=== PATIENT | female | born 1975 | race Caucasian/White ===

== ENCOUNTER 2018-01-02 00:51 | Outpatient (CLI) | payer OTHER, SELFPAY ==
[2018-01-02 11:52] LABS: INR 2.9 (1.0-3.5); Prothrombin Time 27.2 sec (9.3-10.8)
--- NOTE | 2018-01-02 12:15 | DI.MAMMO_ITS ---
SYMPTOM/DIAGNOSIS: SCREENING, Z12.31 MAMMOGRAM: Mammograms were interpreted according to the usual protocol including computer analysis with CAD system, tomosynthesis and C view imaging. Comparison with prior examinations. Breast density B. No masses or microcalcifications are seen. There is nothing to suggest malignancy. IMPRESSION: Negative mammogram. Routine screening is recommended. Category I. MQSA ASSESSMENT OF FINDINGS: Negative. Category 1. Patient will receive a letter notifying them of these results. BI-RADS category B. There are scattered areas of fibroglandular density.
[2018-01-02 12:39] LABS: ALT 36 U/L (12-78); AST 19 U/L (15-37); Albumin 3.5 g/dL (3.4-5.0); Alkaline Phosphatase 100 U/L (46-116); Anion Gap 6.7 mmol/L (3-11); BUN 8 mg/dL (7-18); Bilirubin, Total 0.4 mg/dL (0.2-1.0); CO2 26.3 mmol/L (21.0-32.0); CREATININE 0.86 mg/dL (0.55-1.02); Calcium 8.3 mg/dL (8.5-10.1); Chloride 106 mmol/L (98-107); Cholesterol 169 mg/dL (50-200); Glucose 119 mg/dL (70-100); HDL Cholesterol 35 mg/dL (40-60); LDL CHOLESTEROL 114 mg/dL (<100); Potassium 4.1 mmol/L (3.5-5.1); Sodium 139 mmol/L (136-145); Total Protein 6.9 g/dL (6.4-8.2); Triglyceride 118 mg/dL (30-150)
[2018-01-02 12:43] LABS: Hemoglobin A1C 6.2 % (4.5-6.2)
== END 2018-01-02 01:11 ==
DX: Z12.31 Encounter for screening mammogram for malignant neoplasm of breast (principal); D68.51 Activated protein C resistance; Z79.01 Long term (current) use of anticoagulants; F32.9 Major depressive disorder, single episode, unspecified; E66.9 Obesity, unspecified; M25.50 Pain in unspecified joint; E78.5 Hyperlipidemia, unspecified
CPT/HCPCS: 36415; 77063; 77067; 80053; 80061; 83721; 83036; 85610

== ENCOUNTER 2018-03-12 12:28 | Outpatient (CLI) | payer OTHER, SELFPAY ==
[2018-03-12 13:33] LABS: INR 2.6 (1.0-3.5); Prothrombin Time 24.6 sec (9.3-10.8)
== END 2018-03-12 12:48 ==
PROVIDERS: Family Medicine
DX: D68.51 Activated protein C resistance (principal); Z79.01 Long term (current) use of anticoagulants
CPT/HCPCS: 36415; 85610

== ENCOUNTER 2018-05-01 11:39 | Outpatient (CLI) | payer OTHER, SELFPAY ==
[2018-05-01 12:39] LABS: INR 1.8 (0.9-1.1); Prothrombin Time 18.4 sec (9.3-11.0)
== END 2018-05-01 11:59 ==
DX: D68.51 Activated protein C resistance (principal); Z79.01 Long term (current) use of anticoagulants
CPT/HCPCS: 36415; 85610

== ENCOUNTER 2018-06-26 10:12 | Outpatient (CLI) | payer OTHER, SELFPAY ==
[2018-06-26 11:33] LABS: INR 2.2 (0.9-1.1); Prothrombin Time 22.3 sec (9.3-11.0)
== END 2018-06-26 10:32 ==
DX: D68.51 Activated protein C resistance (principal); Z79.01 Long term (current) use of anticoagulants
CPT/HCPCS: 36415; 85610

== ENCOUNTER 2018-11-12 10:41 | Outpatient (CLI) | payer OTHER, SELFPAY ==
[2018-11-12 11:31] LABS: INR 2.2 (0.9-1.1); Prothrombin Time 22.4 sec (9.3-11.0)
== END 2018-11-12 11:01 ==
DX: I82.91 Chronic embolism and thrombosis of unspecified vein (principal); Z79.01 Long term (current) use of anticoagulants; D68.51 Activated protein C resistance
CPT/HCPCS: 36415; 85610

== ENCOUNTER 2018-12-25 12:32 | Outpatient (CLI) | payer OTHER, SELFPAY ==
[2018-12-25 13:41] LABS: INR 2.8 (0.9-1.1); Prothrombin Time 28.4 sec (9.3-11.0)
== END 2018-12-25 12:52 ==
PROVIDERS: Visit Provider Family Medicine
DX: D68.51 Activated protein C resistance (principal); Z79.01 Long term (current) use of anticoagulants
CPT/HCPCS: 36415; 85610

== ENCOUNTER 2019-01-27 01:30 | Outpatient (CLI) | payer OTHER, SELFPAY ==
--- NOTE | 2019-01-27 07:42 | DI.MAMMO_ITS ---
EXAM: MG MAMMO SCREENING CLINICAL HISTORY: screening, Z12.39. TECHNIQUE: Mammograms were interpreted according to the usual protocol including computer analysis w [employer] CAD system, tomosynthesis and C-view imaging. FINDINGS: The breast tissue is heterogeneously radiodense which lowers the sensitivity of the study. There is no dominant mass. There are no suspicious calcifications and there has been no significant interval c hange when compared with prior images. IMPRESSION: No evidence of malignancy, category 1, annual screening mammography is recommended. Breast density, c ategory C. BI-RADS Cat 1 - Negative. Breast Density - Category C - Heterogeneously dense.
== END 2019-01-27 01:50 ==
PROVIDERS: PCP Family Medicine
DX: Z12.31 Encounter for screening mammogram for malignant neoplasm of breast (principal)
CPT/HCPCS: 77063; 77067

== ENCOUNTER 2019-01-29 03:15 | Outpatient (CLI) | payer OTHER, SELFPAY ==
[2019-01-29 08:45] LABS: Hemoglobin A1C 5.9 % (4.5-6.2); Prothrombin Time 44.5 sec (9.3-11.0)
[2019-01-29 09:23] LABS: ALT 22 U/L (14-59); AST 16 U/L (15-37); Albumin 3.6 g/dL (3.4-5.0); Alkaline Phosphatase 107 U/L (46-116); Anion Gap 10.6 mmol/L (3-11); BUN 9 mg/dL (7-18); Bilirubin, Total 0.6 mg/dL (0.2-1.0); CO2 27.4 mmol/L (21.0-32.0); CREATININE 0.83 mg/dL (0.55-1.02); Calcium 8.5 mg/dL (8.5-10.1); Calculated LDL 111 mg/dL; Chloride 105 mmol/L (98-107); Cholesterol 165 mg/dL (50-200); Glucose 117 mg/dL (70-100); HDL Cholesterol 38 mg/dL (40-60); Potassium 4.1 mmol/L (3.5-5.1); Sodium 143 mmol/L (136-145); Triglyceride 84 mg/dL (30-150)
[2019-01-29 09:37] LABS: INR 4.6 (0.9-1.1)
== END 2019-01-29 03:35 ==
PROVIDERS: Family Medicine; PCP Family Medicine
DX: E03.9 Hypothyroidism, unspecified (principal); E78.5 Hyperlipidemia, unspecified; F32.9 Major depressive disorder, single episode, unspecified; R73.01 Impaired fasting glucose; Z00.00 Encounter for general adult medical examination without abnormal findings; Z79.01 Long term (current) use of anticoagulants; I10 Essential (primary) hypertension; D68.51 Activated protein C resistance
CPT/HCPCS: 36415; 80053; 80061; 83036; 85610

== ENCOUNTER 2019-01-30 10:19 | Outpatient (CLI) | payer OTHER, SELFPAY ==
[2019-01-30 11:17] LABS: INR 3.6 (0.9-1.1); Prothrombin Time 35.5 sec (9.3-11.0)
[2019-02-02 07:50] LABS: INR 1.1 (0.9-1.1); Prothrombin Time 10.7 sec (9.3-11.0)
== END 2019-01-30 10:39 ==
PROVIDERS: PCP Family Medicine; Visit Provider Family Medicine
DX: D68.51 Activated protein C resistance (principal); Z79.01 Long term (current) use of anticoagulants
CPT/HCPCS: 36415; 85610

== ENCOUNTER 2019-02-02 07:04 | Outpatient (CLI) | payer OTHER, SELFPAY | END 2019-02-02 07:24 | PROVIDERS: PCP Family Medicine; Visit Provider Family Medicine | DX: I82.91 Chronic embolism and thrombosis of unspecified vein (principal); Z79.01 Long term (current) use of anticoagulants | CPT/HCPCS: 36415; 85610 ==

== ENCOUNTER 2019-02-06 13:23 | Outpatient (CLI) | payer OTHER, SELFPAY ==
[2019-02-06 14:19] LABS: INR 1.5 (0.9-1.1); Prothrombin Time 15.1 sec (9.3-11.0)
== END 2019-02-06 13:43 ==
PROVIDERS: PCP Family Medicine; Visit Provider Family Medicine
DX: D68.51 Activated protein C resistance (principal); Z79.01 Long term (current) use of anticoagulants
CPT/HCPCS: 36415; 85610

== ENCOUNTER 2019-02-13 10:11 | Outpatient (CLI) | payer OTHER, SELFPAY ==
[2019-02-13 11:49] LABS: Prothrombin Time 28.9 sec (9.3-11.0)
== END 2019-02-13 10:31 ==
PROVIDERS: PCP Family Medicine; Visit Provider Family Medicine
DX: D68.51 Activated protein C resistance (principal); Z79.01 Long term (current) use of anticoagulants
CPT/HCPCS: 36415; 85610

== ENCOUNTER 2019-02-18 13:20 | Outpatient (CLI) | payer OTHER, SELFPAY ==
[2019-02-18 14:21] LABS: INR 2.8 (0.9-1.1); Prothrombin Time 27.4 sec (9.3-11.0)
== END 2019-02-18 13:40 ==
PROVIDERS: Family Medicine; PCP Family Medicine; Visit Provider Family Medicine
DX: D68.51 Activated protein C resistance (principal); Z79.01 Long term (current) use of anticoagulants
CPT/HCPCS: 36415; 85610

== ENCOUNTER 2019-03-13 13:27 | Outpatient (CLI) | payer OTHER, SELFPAY ==
[2019-03-13 14:22] LABS: INR 3.1 (0.9-1.1); Prothrombin Time 30.3 sec (9.3-11.0)
== END 2019-03-13 13:47 ==
PROVIDERS: PCP Family Medicine; Visit Provider Family Medicine
DX: D68.51 Activated protein C resistance (principal); Z79.01 Long term (current) use of anticoagulants
CPT/HCPCS: 36415; 85610

== ENCOUNTER 2019-03-21 09:25 | Outpatient (CLI) | payer OTHER, SELFPAY ==
[2019-03-21 10:06] LABS: INR 2.6 (0.9-1.1); Prothrombin Time 25.7 sec (9.3-11.0)
== END 2019-03-21 09:45 ==
PROVIDERS: Family Medicine; PCP Family Medicine; Visit Provider Family Medicine
DX: D68.51 Activated protein C resistance (principal); Z79.01 Long term (current) use of anticoagulants
CPT/HCPCS: 36415; 85610

== ENCOUNTER 2019-05-06 12:10 | Outpatient (CLI) | payer OTHER, SELFPAY ==
[2019-05-06 13:04] LABS: INR 3.2 (0.9-1.1); Prothrombin Time 31.4 sec (9.3-11.0)
== END 2019-05-06 12:30 ==
PROVIDERS: PCP Family Medicine; Visit Provider Family Medicine
DX: D68.51 Activated protein C resistance (principal); Z79.01 Long term (current) use of anticoagulants
CPT/HCPCS: 36415; 85610

== ENCOUNTER 2019-05-12 15:22 | Outpatient (CLI) | payer OTHER, SELFPAY ==
[2019-05-12 16:00] LABS: INR 2.8 (0.9-1.1); Prothrombin Time 27.4 sec (9.3-11.0)
== END 2019-05-12 15:42 ==
PROVIDERS: PCP Family Medicine; Visit Provider Family Medicine
DX: D68.51 Activated protein C resistance (principal); Z79.01 Long term (current) use of anticoagulants
CPT/HCPCS: 36415; 85610

== ENCOUNTER 2019-08-06 01:47 | Outpatient (CLI) | payer OTHER, SELFPAY ==
[2019-08-06 15:23] LABS: INR 2.2 (0.9-1.1)
== END 2019-08-06 02:07 ==
PROVIDERS: PCP Family Medicine; Visit Provider Family Medicine
DX: D68.51 Activated protein C resistance (principal); Z79.01 Long term (current) use of anticoagulants
CPT/HCPCS: 36415; 85610

== ENCOUNTER 2019-10-09 04:18 | Outpatient (CLI) | payer OTHER, SELFPAY ==
[2019-10-09 15:13] LABS: Prothrombin Time 29.5 sec (9.3-11.0)
== END 2019-10-09 04:38 ==
PROVIDERS: PCP Family Medicine; Visit Provider Family Medicine
DX: D68.51 Activated protein C resistance (principal)
CPT/HCPCS: 36415; 85610

== ENCOUNTER 2019-10-16 01:45 | Outpatient (CLI) | payer OTHER, SELFPAY ==
[2019-10-16 09:14] LABS: INR 2.5 (0.9-1.1); Prothrombin Time 24.4 sec (9.3-11.0)
== END 2019-10-16 02:05 ==
PROVIDERS: PCP Family Medicine; Visit Provider Family Medicine
DX: D68.51 Activated protein C resistance (principal)
CPT/HCPCS: 36415; 85610

== ENCOUNTER 2019-11-04 01:16 | Outpatient (CLI) | payer OTHER, SELFPAY ==
[2019-11-04 14:31] LABS: INR 2.7 (0.9-1.1); Prothrombin Time 26.9 sec (9.3-11.0)
== END 2019-11-04 01:36 ==
PROVIDERS: Family Medicine; PCP Family Medicine; Visit Provider Family Medicine
DX: D68.51 Activated protein C resistance (principal); Z79.01 Long term (current) use of anticoagulants
CPT/HCPCS: 36415; 85610

== ENCOUNTER 2020-01-01 03:57 | Outpatient (CLI) | payer OTHER, SELFPAY ==
[2020-01-01 14:16] LABS: Prothrombin Time 33.6 sec (9.3-11.0)
[2020-01-01 14:23] LABS: INR 3.4 (0.9-1.1)
== END 2020-01-01 04:17 ==
PROVIDERS: Family Medicine; PCP Family Medicine; Visit Provider Family Medicine
DX: D68.51 Activated protein C resistance (principal); Z79.01 Long term (current) use of anticoagulants
CPT/HCPCS: 36415; 85610

== ENCOUNTER 2020-01-08 01:57 | Outpatient (CLI) | payer OTHER, SELFPAY ==
[2020-01-08 09:55] LABS: HCT 40.5 % (36.0-46.0); HGB 13.4 g/dL (11.2-15.7); MCH 28.3 pg (27.0-33.0); MCHC 33.1 % (32.0-36.0); MCV 85.6 fL (80-95); Platelet Count 314 10^3/uL (130-400); RBC 4.73 10^6/uL (3.93-5.22); RDW 14.5 % (11.7-14.6); RDW-SD 44.2 fL; WBC 8.17 10^3/uL (4.4-10.8)
[2020-01-08 09:59] LABS: Bilirubin Negative (Negative); Blood Negative (Negative); Clarity Clear (Clear); Glucose Negative (Negative); Ketones Negative (Negative); Leukocyte Esterase Negative (Negative); Nitrite Negative (Negative); Specific Gravity >= 1.030 (1.005-1.025); Urobilinogen 0.2 EU/dL (Up TO 0.2); pH 5.5 (5-8)
[2020-01-08 10:08] LABS: Hemoglobin A1C 6.2 % (<5.7)
[2020-01-08 11:13] LABS: ALT 43 U/L (14-59); AST 18 U/L (15-37); Albumin 3.7 g/dL (3.4-5.0); Alkaline Phosphatase 105 U/L (46-116); Anion Gap 7.9 mmol/L (3-11); BUN 9 mg/dL (7-18); Bilirubin, Total 0.5 mg/dL (0.2-1.0); CO2 30.1 mmol/L (21.0-32.0); CREATININE 0.83 mg/dL (0.55-1.02); Calcium 8.7 mg/dL (8.5-10.1); Chloride 103 mmol/L (98-107); Glucose 119 mg/dL (74-106); Potassium 3.7 mmol/L (3.5-5.1); Sodium 141 mmol/L (136-145)
== END 2020-01-08 02:17 ==
PROVIDERS: PCP Family Medicine; Visit Provider Family Medicine
DX: Z00.00 Encounter for general adult medical examination without abnormal findings (principal); R73.01 Impaired fasting glucose; R39.11 Hesitancy of micturition
CPT/HCPCS: 36415; 80053; 85027; 81003; 83036

== ENCOUNTER 2020-01-29 04:06 | Outpatient (CLI) | payer OTHER, SELFPAY ==
--- NOTE | 2020-01-29 07:00 | DI.MAMMO_ITS ---
EXAM: MG MAMMO SCREENING CLINICAL HISTORY: screening,Z12.31,Z80.3,FAMILY H/O BREAST CA TECHNIQUE: Mammograms were interpreted according to the usual protocol including computer analysis w [employer] system, tomosynthesis and C-view imaging. COMPARISON: FINDINGS: Breasts are heterogeneously dense. No dominant mass or clumped microcalcification is identified n[address]ha [address]. Current examination is compared previous examinations including January 2019 and there has been no gross interval change in appearance in comparison with the prior studies. IMPRESSION: No specific evidence of malignancy at this time. Routine screening examinations are suggested at yea rly intervals due to the family history of breast carcinoma. BI-RADS Category 1 - Negative Breast Density - Category C - Heterogeneously dense
== END 2020-01-29 04:26 ==
PROVIDERS: PCP Family Medicine; Visit Provider Family Medicine
DX: Z12.31 Encounter for screening mammogram for malignant neoplasm of breast (principal); Z80.3 Family history of malignant neoplasm of breast
CPT/HCPCS: 77063; 77067

== ENCOUNTER 2020-02-03 02:24 | Outpatient (CLI) | payer OTHER, SELFPAY ==
[2020-02-03 12:41] LABS: INR 4.1 (0.9-1.1)
== END 2020-02-03 02:44 ==
PROVIDERS: PCP Family Medicine; Visit Provider Family Medicine
DX: D68.51 Activated protein C resistance (principal); Z79.01 Long term (current) use of anticoagulants
CPT/HCPCS: 36415; 85610

== ENCOUNTER 2020-02-05 04:11 | Outpatient (CLI) | payer OTHER, SELFPAY ==
[2020-02-05 14:05] LABS: INR 2.4 (0.9-1.1); Prothrombin Time 23.2 sec (9.3-11.0)
== END 2020-02-05 04:31 ==
PROVIDERS: PCP Family Medicine; Visit Provider Family Medicine
DX: D68.51 Activated protein C resistance (principal); Z79.01 Long term (current) use of anticoagulants
CPT/HCPCS: 36415; 85610

== ENCOUNTER 2020-02-16 02:36 | Outpatient (CLI) | payer OTHER, SELFPAY ==
[2020-02-16 13:04] LABS: INR 3.1 (0.9-1.1); Prothrombin Time 30.7 sec (9.3-11.0)
== END 2020-02-16 02:56 ==
PROVIDERS: PCP Family Medicine; Visit Provider Family Medicine
DX: D68.51 Activated protein C resistance (principal); Z79.01 Long term (current) use of anticoagulants
CPT/HCPCS: 36415; 85610

== ENCOUNTER 2020-02-23 04:05 | Outpatient (CLI) | payer OTHER, SELFPAY ==
[2020-02-23 15:04] LABS: INR 2.4 (0.9-1.1); Prothrombin Time 23.3 sec (9.3-11.0)
== END 2020-02-23 04:25 ==
PROVIDERS: PCP Family Medicine; Visit Provider Family Medicine
DX: D68.51 Activated protein C resistance (principal); Z79.01 Long term (current) use of anticoagulants
CPT/HCPCS: 36415; 85610

== ENCOUNTER 2020-03-01 02:24 | Outpatient (CLI) | payer OTHER, SELFPAY ==
[2020-03-01 16:13] LABS: INR 3.1 (0.9-1.1)
== END 2020-03-01 02:44 ==
PROVIDERS: PCP Family Medicine; Visit Provider Family Medicine
DX: Z79.01 Long term (current) use of anticoagulants (principal); D68.51 Activated protein C resistance
CPT/HCPCS: 36415; 85610

== ENCOUNTER 2020-03-24 03:31 | Outpatient (CLI) | payer OTHER, SELFPAY ==
[2020-03-24 09:31] LABS: Prothrombin Time 41.3 sec (9.3-11.0)
[2020-03-24 09:35] LABS: INR 4.3 (0.9-1.1)
== END 2020-03-24 03:51 ==
PROVIDERS: PCP Family Medicine; Visit Provider Family Medicine
DX: D68.51 Activated protein C resistance (principal); Z79.01 Long term (current) use of anticoagulants
CPT/HCPCS: 36415; 85610

== ENCOUNTER 2020-03-26 09:55 | Outpatient (REF) | payer OTHER, SELFPAY ==
[2020-03-26 11:23] LABS: Prothrombin Time 22.9 sec (9.3-11.0)
[2020-03-26 11:27] LABS: INR 2.3 (0.9-1.1)
== END 2020-03-26 10:15 ==
LOC: NCHCN 09:55
PROVIDERS: PCP Family Medicine; Visit Provider Physician Assistant
DX: Z79.01 Long term (current) use of anticoagulants (principal)
CPT/HCPCS: 85610

== ENCOUNTER → 2020-03-29 04:37 | Outpatient (CLI) | payer OTHER, SELFPAY ==
[2020-03-29 10:45] LABS: INR 2.9 (0.9-1.1)
== END ==
PROVIDERS: PCP Family Medicine; Visit Provider Family Medicine
DX: D68.51 Activated protein C resistance (principal); Z79.01 Long term (current) use of anticoagulants
CPT/HCPCS: 36415; 85610

== ENCOUNTER → 2020-04-05 02:39 | Outpatient (CLI) | payer OTHER, SELFPAY ==
[2020-04-05 08:58] LABS: INR 3.7 (0.9-1.1); Prothrombin Time 35.6 sec (9.3-11.0)
== END ==
PROVIDERS: PCP Family Medicine; Visit Provider Family Medicine
DX: D68.51 Activated protein C resistance (principal); Z79.01 Long term (current) use of anticoagulants
CPT/HCPCS: 36415; 85610

== ENCOUNTER → 2020-04-12 02:20 | Outpatient (CLI) | payer OTHER, SELFPAY ==
[2020-04-12 09:21] LABS: INR 2.6 (0.9-1.1); Prothrombin Time 25.7 sec (9.3-11.0)
== END ==
PROVIDERS: PCP Family Medicine; Visit Provider Family Medicine
DX: D68.51 Activated protein C resistance (principal); Z79.01 Long term (current) use of anticoagulants
CPT/HCPCS: 36415; 85610

== ENCOUNTER → 2020-04-21 03:21 | Outpatient (CLI) | payer OTHER, SELFPAY ==
[2020-04-21 15:05] LABS: INR 2.6 (0.9-1.1); Prothrombin Time 25.4 sec (9.3-11.0)
== END ==
PROVIDERS: PCP Family Medicine; Visit Provider Family Medicine
DX: D68.51 Activated protein C resistance (principal); Z79.01 Long term (current) use of anticoagulants
CPT/HCPCS: 36415; 85610

== ENCOUNTER → 2020-05-04 04:46 | Outpatient (CLI) | payer OTHER, SELFPAY ==
[2020-05-04 09:08] LABS: INR 2.2 (0.9-1.1); Prothrombin Time 21.6 sec (9.3-11.0)
== END ==
PROVIDERS: PCP Family Medicine; Visit Provider Family Medicine
DX: D68.51 Activated protein C resistance (principal); Z79.01 Long term (current) use of anticoagulants
CPT/HCPCS: 36415; 85610

== ENCOUNTER → 2020-05-20 02:19 | Outpatient (CLI) | payer OTHER, SELFPAY ==
[2020-05-20 12:49] LABS: INR 3.9 (0.9-1.1); Prothrombin Time 37.6 sec (9.3-11.0)
== END ==
PROVIDERS: PCP Family Medicine; Visit Provider Family Medicine
DX: D68.51 Activated protein C resistance (principal); Z79.01 Long term (current) use of anticoagulants
CPT/HCPCS: 36415; 85610

== ENCOUNTER 2020-05-27 01:11 | Outpatient (CLI) | payer OTHER, SELFPAY ==
[2020-05-27 07:38] LABS: INR 2.6 (0.9-1.1); Prothrombin Time 25.1 sec (9.3-11.0)
== END 2020-05-27 01:12 | disposition home or self-care (01) ==
LOC: LBO 01:11
PROVIDERS: PCP Family Medicine; Visit Provider Family Medicine
DX: D68.51 Activated protein C resistance (principal); Z79.01 Long term (current) use of anticoagulants
CPT/HCPCS: 36415; 85610

== ENCOUNTER 2020-06-03 02:34 | Outpatient (CLI) | payer OTHER, SELFPAY ==
[2020-06-03 14:56] LABS: Prothrombin Time 19.8 sec (9.3-11.0)
== END 2020-06-03 02:35 | disposition home or self-care (01) ==
LOC: LBO 02:35
PROVIDERS: Family Medicine; PCP Family Medicine; Visit Provider Family Medicine
DX: D68.51 Activated protein C resistance (principal); Z79.01 Long term (current) use of anticoagulants
CPT/HCPCS: 36415; 85610

== ENCOUNTER 2020-06-10 08:35 | Outpatient (CLI) | payer OTHER, SELFPAY ==
[2020-06-10 09:10] LABS: INR 1.8 (0.9-1.1); Prothrombin Time 17.5 sec (9.3-11.0)
== END 2020-06-10 08:36 | disposition home or self-care (01) ==
PROVIDERS: PCP Family Medicine; Visit Provider Family Medicine
DX: D68.51 Activated protein C resistance (principal); Z79.01 Long term (current) use of anticoagulants
CPT/HCPCS: 36415; 85610

== ENCOUNTER 2020-06-22 04:00 | Outpatient (CLI) | payer OTHER, SELFPAY ==
[2020-06-22 12:52] LABS: INR 1.8 (0.9-1.1); Prothrombin Time 17.8 sec (9.3-11.0)
== END 2020-06-22 04:01 | disposition home or self-care (01) ==
LOC: LOS 04:01
PROVIDERS: PCP Family Medicine; Visit Provider Family Medicine
DX: D68.51 Activated protein C resistance (principal); Z79.01 Long term (current) use of anticoagulants
CPT/HCPCS: 36415; 85610

== ENCOUNTER 2020-06-29 04:00 | Outpatient (CLI) | payer OTHER, SELFPAY ==
[2020-06-29 10:05] LABS: Prothrombin Time 29.2 sec (9.3-11.0)
== END 2020-06-29 04:01 | disposition home or self-care (01) ==
LOC: LBO 04:00
PROVIDERS: PCP Family Medicine; Visit Provider Family Medicine
DX: I82.890 Acute embolism and thrombosis of other specified veins (principal); Z79.01 Long term (current) use of anticoagulants
CPT/HCPCS: 36415; 85610

== ENCOUNTER 2020-07-06 02:15 | Outpatient (CLI) | payer OTHER, SELFPAY ==
[2020-07-06 10:39] LABS: INR 3.3 (0.9-1.1); Prothrombin Time 31.8 sec (9.3-11.0)
== END 2020-07-06 02:16 | disposition home or self-care (01) ==
LOC: LBO 02:15
PROVIDERS: PCP Family Medicine; Visit Provider Family Medicine
DX: D68.51 Activated protein C resistance (principal); Z79.01 Long term (current) use of anticoagulants
CPT/HCPCS: 36415; 85610

== ENCOUNTER 2020-07-19 03:51 | Outpatient (CLI) | payer OTHER, SELFPAY ==
[2020-07-19 10:19] LABS: INR 2.2 (0.9-1.1); Prothrombin Time 21.9 sec (9.3-11.0)
== END 2020-07-19 03:52 | disposition home or self-care (01) ==
LOC: LBO 03:52
PROVIDERS: PCP Family Medicine; Visit Provider Family Medicine
DX: D68.51 Activated protein C resistance (principal); Z79.01 Long term (current) use of anticoagulants
CPT/HCPCS: 36415; 85610

== ENCOUNTER 2020-07-26 04:03 | Outpatient (CLI) | payer OTHER, SELFPAY ==
[2020-07-26 09:39] LABS: INR 2.7 (0.9-1.1); Prothrombin Time 26.8 sec (9.3-11.0)
== END 2020-07-26 04:04 | disposition home or self-care (01) ==
LOC: LBO 04:03
PROVIDERS: PCP Family Medicine; Visit Provider Family Medicine
DX: D68.51 Activated protein C resistance (principal); Z79.01 Long term (current) use of anticoagulants
CPT/HCPCS: 36415; 85610

== ENCOUNTER 2020-08-10 03:07 | Outpatient (CLI) | payer OTHER, SELFPAY ==
[2020-08-10 09:29] LABS: INR 2.3 (0.9-1.1); Prothrombin Time 22.9 sec (9.3-11.0)
== END 2020-08-10 03:08 | disposition home or self-care (01) ==
LOC: LBO 03:07
PROVIDERS: PCP Family Medicine; Visit Provider Family Medicine
DX: D68.51 Activated protein C resistance (principal); Z79.01 Long term (current) use of anticoagulants
CPT/HCPCS: 36415; 85610

== ENCOUNTER 2020-09-21 03:22 | Outpatient (CLI) | payer OTHER, SELFPAY ==
[2020-09-21 12:41] LABS: INR 2.7 (0.9-1.1); Prothrombin Time 26.5 sec (9.3-11.0)
== END 2020-09-21 03:23 | disposition home or self-care (01) ==
LOC: LBO 03:22
PROVIDERS: PCP Family Medicine; Visit Provider Family Medicine
DX: D68.51 Activated protein C resistance (principal); Z79.01 Long term (current) use of anticoagulants
CPT/HCPCS: 36415; 85610

== ENCOUNTER 2020-12-30 03:29 | Outpatient (CLI) | payer OTHER, SELFPAY ==
[2020-12-30 08:57] LABS: INR 2.4 (0.9-1.1); Prothrombin Time 23.9 sec (9.3-11.0)
== END 2020-12-30 03:30 | disposition home or self-care (01) ==
PROVIDERS: PCP Family Medicine; Visit Provider Nurse Practitioner
DX: I82.891 Chronic embolism and thrombosis of other specified veins (principal); Z79.01 Long term (current) use of anticoagulants
CPT/HCPCS: 36415; 85610

== ENCOUNTER 2021-02-09 01:48 | Outpatient (CLI) | payer OTHER, SELFPAY ==
--- NOTE | 2021-02-09 07:30 | DI.MAMMO_ITS ---
Exam(s) MAMMO SCREENING EXAM: MAMMO SCREENING CLINICAL HISTORY: screening,Z12.39. TECHNIQUE: Bilateral full field digital CC and MLO mammographic images were obtained with 3D tomosyn thesis and utilizing computer aided detection (CAD). COMPARISON: Prior mammograms dating back to 2016, the most recent being January 2020. Significant family history. Her mother was diagnosed with breast cancer in her 50s. FINDINGS: There are no new spiculated masses nor malignant appearing microcalcification groups. There is no significant architectural distortion nor skin thickening-retraction. IMPRESSION: No radiographic evidence of malignancy. BI-RADS Category 1 - Negative Breast Density - Category B - Scattered areas of fibroglandular density Breast density Category C or D implies that the patient has dense breast tissue. Dense breast tissue can make it harder to find cancer on a mammogram. Dense breast tissue is also associated with an incr eased risk of breast cancer. This information about the result of the mammogram report was provided to the patient to raise their awareness. Use this report when you speak with the patient about their risks for breast cancer, which includes their family history. At that time, you may recommend additional screening tests (Ultrasoun d or MRI) as these tests may add significant information. A negative radiographic report should not delay biopsy if a dominant or clinically suspicious mass is present. Up to ten percent of cancers are not identified on mammography. A negative report may reinforce clinical impression. Adenosis and dense breasts may obscure an underlying neoplasm. False positive reports average 6 to 10%. Patient will receive a letter notifying them of these results.
== END 2021-02-09 02:08 ==
PROVIDERS: PCP Family Medicine; Visit Provider Family Medicine
DX: Z12.31 Encounter for screening mammogram for malignant neoplasm of breast (principal)
CPT/HCPCS: 77063; 77067

== ENCOUNTER 2021-03-01 02:50 | Outpatient (CLI) | payer OTHER, SELFPAY ==
[2021-03-01 11:30] LABS: Hemoglobin A1C 6.7 % (<5.7)
[2021-03-01 11:31] LABS: Prothrombin Time 19.4 sec (9.3-11.0)
[2021-03-01 12:21] LABS: BUN 10 mg/dL (7-18); CREATININE 1.1 mg/dL (0.55-1.02); Calcium 8.7 mg/dL (8.5-10.1); Chloride 102 mmol/L (98-107); Estimated GFR 54.21 (mL/min/1.73m2); Glucose 187 mg/dL (74-106); Sodium 142 mmol/L (136-145)
[2021-03-02 10:12] LABS: Hepatitis C Ab w Rflx HCV PCR Negative (Negative)
[2021-03-02 10:55] LABS: HIV-1/2 Ag & Ab Screen Negative (Negative)
== END 2021-03-01 02:51 | disposition home or self-care (01) ==
LOC: LBO 02:50
PROVIDERS: PCP Family Medicine; Visit Provider Family Medicine
DX: Z00.00 Encounter for general adult medical examination without abnormal findings (principal); D68.51 Activated protein C resistance; I10 Essential (primary) hypertension; R73.01 Impaired fasting glucose; E66.9 Obesity, unspecified; Z11.4 Encounter for screening for human immunodeficiency virus [HIV]; Z11.59 Encounter for screening for other viral diseases
CPT/HCPCS: 36415; 80048; 86803; 87389; 83036; 85610

== ENCOUNTER 2021-05-29 04:05 | Outpatient (CLI) | payer OTHER, SELFPAY ==
[2021-05-29 12:27] LABS: Prothrombin Time 19.4 sec (9.3-11.0)
== END 2021-05-29 04:06 | disposition home or self-care (01) ==
LOC: LBO 04:05
PROVIDERS: PCP Family Medicine; Visit Provider Family Medicine
DX: D68.51 Activated protein C resistance (principal)
CPT/HCPCS: 36415; 85610

== ENCOUNTER 2021-07-05 02:38 | Outpatient (CLI) | payer OTHER, SELFPAY ==
[2021-07-05 10:34] LABS: INR 2.1 (0.9-1.1); Prothrombin Time 20.6 sec (9.3-11.0)
== END 2021-07-05 02:39 | disposition home or self-care (01) ==
PROVIDERS: PCP Family Medicine; Visit Provider Family Medicine
DX: D68.51 Activated protein C resistance (principal)
CPT/HCPCS: 36415; 85610

== ENCOUNTER 2021-08-19 16:08 | Emergency (ER) | payer OTHER, SELFPAY ==
[2021-08-19 16:11] VITALS: BP 193/122; PULSE 102; RESP 16; TEMP 36.8; O2SAT 97
--- NOTE | 2021-08-19 17:07 | W.ED.GENAD ---
Discharge Plan Disposition Patient Disposition: HOME Condition: Stable Discharge Details Clinical Impression: Abscess, dental Primary Care Provider: Ruma Turner ED Provider: Radha Bone Home Meds and New Rx's Prescriptions: New clindamycin HCl 150 mg capsule 450 mg PO TID Qty: 90 0RF Continued duloxetine 60 mg capsule,delayed release(DR/EC) 60 mg PO DAILY Qty: 90 3RF warfarin 4 mg tablet 8 mg PO DAILY Qty: 180 3RF Protocol: Dose Management Condition: Saturday Dose/Route: 8 mg Instruction: 2 x 4 mg tablets Condition: Saturday Dose/Route: 8 mg Instruction: 2 x 4 mg tablets Condition: Saturday Dose/Route: 8 mg Instruction: 2 x 4 mg tablets Condition: Saturday Dose/Route: 6 mg Instruction: 1.5 x 4 mg tablets Condition: Dose/Route: 8 mg Instruction: 2 x 4 mg tablets Condition: Saturday Dose/Route: 8 mg Instruction: 2 x 4 mg tablets Condition: Saturday Dose/Route: 8 mg Instruction: 2 x 4 mg tablets Protocol Text: Adjustment Start Date: Saturday07/05/21 INR Value: 2.1 INR Date: 07/05/21 Recheck Date: 08/04/21 Rx Instructions: Per dosing protocol established by [facility] lansoprazole [Prevacid] 15 mg capsule,delayed release(DR/EC) 15 mg PO DAILY Qty: 180 4RF Discharge Instructions Instructions: Dental Abscess (ED) Additional Instructions: Take Tylenol as needed pain Will likely require Recheck in 48 hours, it would likely take 48 hours. Antibiotics were not Gargle with warm salt water as frequently as possible during the day Follow-up with dentist on Saturday Return immediately should he develop difficulty swallowing, fever, or with any new or worsening complaints Take antibiotic as prescribed Will need a repeat INR of your Coumadin level checked within the next 4 to 5 days [phone] [facility] Referrals: Ruma Turner MD [Primary Care Provider] - Discharge Data Discharge Date/Time-TO BE ENTERED AT DEPARTURE: 08/19/21 17:27 Medical Decision Making Patient appears well, she has some mild maxillary swelling Needle aspiration performed with dental block did not exhibit any blood Tolerated procedure without incident Placed on clindamycin Referral to dentist for follow-up on Benedict Return precaution discussed and patient expressed understanding,no evidence of ludwigs angina Medical Records Medical records reviewed: Yes I reviewed the patient's medical records. Lab Data Lab results reviewed: Yes I reviewed the patient's lab results. HPI General Date/Time Provider Initiated Documentation: 08/19/21 16:32. HPI Narrative: This 45-year-old female with past medical history of factor V anticoagulated on Coumadin presents with dental pain which started today. Denies any difficulty swallowing or fever. Denies chest pain or shortness of breath. Denies any dizziness or weakness. States she has a history of dental issues. She has not been to the dentist for an extended period of time. Facial swelling started today. She Related Data Home Medications Medication Instructions Recorded Confirmed duloxetine 60 mg capsule,delayed 60 mg PO DAILY #90 cap 01/13/21 08/19/21 release lansoprazole 15 mg capsule,delayed 15 mg PO DAILY #180 tab-cap 01/13/21 08/19/21 release (Prevacid) warfarin 4 mg tablet 8 mg PO DAILY #180 tab 01/13/21 08/19/21 clindamycin HCl 150 mg capsule 450 mg PO TID #90 cap 08/19/21 Previous Rx's Medication Instructions Recorded duloxetine 60 mg capsule,delayed 60 mg PO DAILY #90 cap 01/13/21 release warfarin 4 mg tablet 8 mg PO DAILY #180 tab 01/13/21 clindamycin HCl 150 mg capsule 450 mg PO TID #90 cap 08/19/21 Allergies Allergy/AdvReac Type Severity Reaction Status Date / Time oxycodone Allergy Severe ITCHING Verified 08/19/21 16:16 bupropion HCl AdvReac Severe NUMBNESS, Verified 08/19/21 16:16 [From Wellbutrin SR] TINGLING, SHAKING citalopram AdvReac Unknown IRRITABLE Verified 08/19/21 16:16 morphine AdvReac SEVERE Verified 08/19/21 16:16 ITCHING General Stated Complaint: DentalOral ENE: 5 Review of Systems All systems reviewed & are unremarkable except as noted in HPI and below PFSH All Active Problems (Updated 08/19/21 @ 17:11 by JOSSUE Sinha) Abscess, dental (Acute) Fibromyalgia (Chronic) on duloxetine with good effect Impaired fasting glucose (Acute 09/19/09) Nonulcer dyspepsia (Acute) Chronic anticoagulation (Chronic) Factor V Leiden mutation (Acute 12/26/12) h/o DVT 1993 Tobacco use (Acute 12/03/13) smokes <1/2 pack/day; vapes now Obesity (Acute 11/07/12) Hyperlipidemia (Acute 11/07/12) Depressive disorder (Acute) Medical History (Updated 08/19/21 @ 17:11 by JOSSUE Sinha) Family history of breast cancer Surgical History (Updated 01/13/21 @ 09:48 by Ruma Turner MD) Cervical Conization/LEEP (~1996) History of intravascular stent placement in femoral vein - age 19 S/P S/P laparoscopic hysterectomy done for cramping, uterine scarring post . Tonsillectomy and adenoidectomy Family History (Updated 01/13/21 @ 09:49 by Ruma Turner MD) Mother Depression Hyperlipidemia Breast cancer Father Essential hypertension Heart disease [place] in 2019 Hyperlipidemia Sister Basal cell carcinoma Depression Asthma Brother No problems noted. Maternal Grandfather Depression Heart disease Paternal Grandfather Heart disease Maternal Grandmother Heart disease Hyperlipidemia Stroke Depression Sister Stroke Maternal Aunt Breast cancer Maternal Aunt Brain cancer Maternal Cousin Neoplasm BREAST Breast cancer Social History (Updated 01/19/21 @ 11:01 by Maureen Oconnell) Smoking/Tobacco Use Status: Current, status unknown Tobacco Type: e-cigarettes Smokeless tobacco user: other (vaping) Quit status: has quit before Second Hand Exposure: No Smoking risk assessment performed?: Yes Alcohol Intake: current Alcohol Intake frequency: holidays/special occasions only Alcohol type: beer Drug use: Occasionally Substance use type: does not use and marijuana Caregiver/Support person: No Household members: spouse and children Housing: house Number of Children: 2 Communication Needs: None Education Level: high school current occupation: HOMEMAKER Pets and animals: Yes Pets and animals: dog(s) Sexually active: Yes Do you think of yourself as: straight/heterosexual Current gender identity: female What is your relationship status?: How often do you talk on the phone with friends or family?: twice per week How often do you get together with friends or relatives?: once per week How often do you attend confucianist or denominational services?: 1-3 times per year Do you belong to any clubs or organized social groups?: no Panel score (0-1 are the most socially isolated patients): 2 What type of physical activity do you participate in: walking Duration: < 15 minutes/day Frequency: 3-4 times per week Nilam/Yarsani: None Special nilam needs: No Seatbelt use: always Helmet use: Yes Drive intox or ride w/intox equipment driver: No Do you feel safe at home: Yes Do you feel safe in your relationship?: Yes Exam Const General: cooperative, comfortable and no acute distress Orientation: alert and oriented x3 [facility] Head images: 1. swelling noted Teeth image: 1. Fracture noted, no fluctuance, no evidence of ludwigs angina no trismus Eyes Pupils: PERRL Neck Other: no stridor Resp Effort & Inspection: normal respiratory effort Auscultation: clear to auscultation bilaterally Cardio Rate: regular rate Rhythm: regular rhythm Skin General skin exam: no rashes or lesions noted Neuro General: patient alert and patient oriented x3 Course Vital Signs Vital signs: Vital Signs Temperature 36.8 C 08/19/21 16:11 Pulse 102 H 08/19/21 16:11 Respiratory Rate 16 08/19/21 16:11 Blood Pressure 193/122 H 08/19/21 16:11 Pulse Oximetry 97 08/19/21 16:11 Temperature 36.8 C 08/19/21 16:11 Temperature Source Temporal Artery Scan 08/19/21 16:11 Pulse 102 H 08/19/21 16:11 Respiratory Rate 16 08/19/21 16:11 Respiratory Effort 08/19/21 16:15 Blood Pressure 193/122 H 08/19/21 16:11 Blood Pressure Position Sitting 08/19/21 16:11 Pulse Oximetry 97 08/19/21 16:11 Oxygen Delivery Method Room Air 08/19/21 16:11 Oxygen Flow Rate 0 08/19/21 16:11 Pain Level 7 08/19/21 16:17 Procedures Nerve Block Nerve Block 1: Local Anesthetic: Bupivicaine 0.5% Nerve Blocks: other (superior inferior alveolar nerve ) Complications: none
[2021-08-19 17:15] VITALS: BP 165/104; PULSE 88; TEMP 37; O2SAT 98
[2021-08-19] MEDS: Clindamycin 150 MG CAP 450 MG PO (17:20)
[2021-08-19] MEDS: Clindamycin 150 MG CAP, 12 CAPS/BTL 450 MG PO (20:50)
--- NOTE | 2021-08-19 20:51 | NUR.NOTE ---
pt presented to the ER to say that she was unable to fill her rx . we gave her a 12 cap bottle of clindamycin Nursing Note:
== END 2021-08-19 17:27 | disposition home or self-care (01) ==
PROVIDERS: Emergency Provider Physician Assistant; PCP Family Medicine
DX: K04.7 Periapical abscess without sinus (principal)
CPT/HCPCS: 64400

== ENCOUNTER 2021-08-23 01:31 | Outpatient (CLI) | payer OTHER, SELFPAY ==
[2021-08-23 13:27] LABS: INR 1.7 (0.9-1.1); Prothrombin Time 17.1 sec (9.3-11.0)
== END 2021-08-23 01:32 | disposition home or self-care (01) ==
LOC: LBO 01:31
PROVIDERS: PCP Family Medicine; Visit Provider Family Medicine
DX: D68.51 Activated protein C resistance (principal)
CPT/HCPCS: 36415; 85610

== ENCOUNTER 2021-08-25 02:58 | Outpatient (CLI) | payer OTHER, SELFPAY ==
[2021-08-25 10:34] LABS: INR 1.3 (0.9-1.1)
== END 2021-08-25 02:59 | disposition home or self-care (01) ==
LOC: LBO 02:58
PROVIDERS: PCP Family Medicine; Visit Provider Family Medicine
DX: D68.51 Activated protein C resistance (principal)
CPT/HCPCS: 36415; 85610

== ENCOUNTER 2021-08-29 01:36 | Outpatient (CLI) | payer OTHER, SELFPAY ==
[2021-08-29 11:31] LABS: INR 1.6 (0.9-1.1); Prothrombin Time 15.6 sec (9.3-11.0)
== END 2021-08-29 01:37 | disposition home or self-care (01) ==
LOC: LBO 01:36
PROVIDERS: Nurse Practitioner; PCP Family Medicine; Visit Provider Family Medicine
DX: D68.51 Activated protein C resistance (principal)
CPT/HCPCS: 36415; 85610

== ENCOUNTER 2021-09-05 02:23 | Outpatient (CLI) | payer OTHER, SELFPAY ==
[2021-09-05 13:10] LABS: INR 2.4 (0.9-1.1); Prothrombin Time 23.8 sec (9.3-11.0)
== END 2021-09-05 02:24 | disposition home or self-care (01) ==
LOC: LBO 02:23
PROVIDERS: PCP Family Medicine; Visit Provider Family Medicine
DX: D68.51 Activated protein C resistance (principal)
CPT/HCPCS: 36415; 85610

== ENCOUNTER 2021-09-13 04:22 | Outpatient (CLI) | payer OTHER, SELFPAY ==
[2021-09-13 13:00] LABS: INR 2.9 (0.9-1.1); Prothrombin Time 28.6 sec (9.3-11.0)
== END 2021-09-13 04:23 | disposition home or self-care (01) ==
PROVIDERS: PCP Family Medicine; Visit Provider Nurse Practitioner
DX: D68.51 Activated protein C resistance (principal)
CPT/HCPCS: 36415; 85610

== ENCOUNTER 2021-09-20 03:59 | Outpatient (CLI) | payer OTHER, SELFPAY ==
[2021-09-20 11:56] LABS: INR 2.9 (0.9-1.1); Prothrombin Time 28.6 sec (9.3-11.0)
== END 2021-09-20 04:00 | disposition home or self-care (01) ==
LOC: LBO 03:59
PROVIDERS: PCP Family Medicine; Visit Provider Family Medicine
DX: D68.51 Activated protein C resistance (principal); I82.891 Chronic embolism and thrombosis of other specified veins; Z79.01 Long term (current) use of anticoagulants
CPT/HCPCS: 36415; 85610

== ENCOUNTER 2021-10-05 03:59 | Outpatient (CLI) | payer OTHER, SELFPAY ==
[2021-10-05 16:05] LABS: Prothrombin Time 25.1 sec (9.3-11.0)
[2021-10-05 16:20] LABS: INR 2.6 (0.9-1.1)
== END 2021-10-05 04:00 | disposition home or self-care (01) ==
LOC: LBO 03:59
PROVIDERS: PCP Family Medicine; Visit Provider Family Medicine
DX: I82.891 Chronic embolism and thrombosis of other specified veins (principal); Z79.01 Long term (current) use of anticoagulants
CPT/HCPCS: 36415; 85610

== ENCOUNTER 2021-10-26 04:08 | Outpatient (CLI) | payer OTHER, SELFPAY ==
[2021-10-26 15:37] LABS: INR 3.9 (0.9-1.1); Prothrombin Time 36.1 sec (9.3-11.0)
== END 2021-10-26 04:09 | disposition home or self-care (01) ==
PROVIDERS: PCP Family Medicine; Visit Provider Family Medicine
DX: D68.51 Activated protein C resistance (principal)
CPT/HCPCS: 36415; 85610

== ENCOUNTER 2021-11-02 02:38 | Outpatient (CLI) | payer OTHER, SELFPAY | END 2021-11-02 02:39 | disposition home or self-care (01) | LOC: LBO 02:40 | PROVIDERS: PCP Family Medicine; Visit Provider Family Medicine ==

== ENCOUNTER 2021-11-08 10:04 | Outpatient (CLI) | payer OTHER, SELFPAY | END 2021-11-08 10:05 | disposition home or self-care (01) | LOC: LBO 10:05 | PROVIDERS: PCP Family Medicine ==

== ENCOUNTER 2021-11-13 04:00 | Outpatient (CLI) | payer OTHER, SELFPAY ==
[2021-11-13 11:58] LABS: INR 2.1 (0.9-1.1); Prothrombin Time 20.6 sec (9.3-11.0)
== END 2021-11-13 04:01 | disposition home or self-care (01) ==
LOC: LBO 04:01
PROVIDERS: PCP Family Medicine; Visit Provider Nurse Practitioner
DX: I82.891 Chronic embolism and thrombosis of other specified veins (principal); Z79.01 Long term (current) use of anticoagulants
CPT/HCPCS: 36415; 85610

== ENCOUNTER 2021-11-20 03:55 | Outpatient (CLI) | payer OTHER, SELFPAY ==
[2021-11-20 11:41] LABS: INR 2.3 (0.9-1.1)
== END 2021-11-20 03:56 | disposition home or self-care (01) ==
PROVIDERS: PCP Family Medicine; Visit Provider Nurse Practitioner
DX: I82.891 Chronic embolism and thrombosis of other specified veins (principal); Z79.01 Long term (current) use of anticoagulants
CPT/HCPCS: 36415; 85610

== ENCOUNTER 2021-12-21 04:49 | Outpatient (CLI) | payer OTHER, SELFPAY ==
[2021-12-21 10:43] LABS: INR 2.9 (0.9-1.1); Prothrombin Time 27.2 sec (9.3-11.0)
[2021-12-21 12:31] LABS: Calculated LDL 237 mg/dL (<100); Cholesterol 325 mg/dL (<200); HDL Cholesterol 35 mg/dL (40-60); Triglyceride 267 mg/dL (<150)
[2021-12-21 18:57] LABS: Lab Add On Test DONE
[2021-12-21 19:28] LABS: TSH (W/Ref FT4) 1.02 uIU/mL (0.36-3.74)
== END 2021-12-21 04:50 | disposition home or self-care (01) ==
PROVIDERS: PCP Family Medicine; Visit Provider Family Medicine
DX: Z00.00 Encounter for general adult medical examination without abnormal findings (principal); D64.81 Anemia due to antineoplastic chemotherapy; E78.5 Hyperlipidemia, unspecified
CPT/HCPCS: 36415; 80061; 84443; 85610

== ENCOUNTER 2022-01-03 01:39 | Outpatient (CLI) | payer OTHER, SELFPAY ==
[2022-01-03 09:33] LABS: Calculated LDL 276 mg/dL (<100); Cholesterol 350 mg/dL (<200); HDL Cholesterol 38 mg/dL (40-60); Triglyceride 183 mg/dL (<150)
== END 2022-01-03 01:40 | disposition home or self-care (01) ==
LOC: LBO 01:39
PROVIDERS: PCP Family Medicine; Visit Provider Family Medicine
DX: E78.5 Hyperlipidemia, unspecified (principal); Z13.6 Encounter for screening for cardiovascular disorders
CPT/HCPCS: 36415; 80061

== ENCOUNTER 2022-01-12 01:05 | Outpatient (CLI) | payer OTHER, SELFPAY ==
[2022-01-12 13:02] LABS: INR 2.8 (0.9-1.1); Prothrombin Time 26.2 sec (9.3-11.0)
== END 2022-01-12 01:06 | disposition home or self-care (01) ==
PROVIDERS: PCP Family Medicine; Visit Provider Family Medicine
DX: D68.51 Activated protein C resistance (principal); Z79.01 Long term (current) use of anticoagulants
CPT/HCPCS: 36415; 85610; 85730

== ENCOUNTER 2022-02-02 01:44 | Outpatient (CLI) | payer OTHER, SELFPAY ==
[2022-02-02 11:13] LABS: Bilirubin Negative (Negative); Blood Negative (Negative); Clarity Clear (Clear); Glucose 500 mg/dL (Negative); Ketones Negative (Negative); Leukocyte Esterase Negative (Negative); Nitrite Negative (Negative); Specific Gravity 1.015 (1.005-1.025); Urobilinogen 0.2 EU/dL (Up TO 0.2); pH 6.5 (5-8)
[2022-02-02 11:40] LABS: Anion Gap 9.7 mmol/L (3-11); BUN 11 mg/dL (7-18); CO2 27.3 mmol/L (21.0-32.0); CREATININE 1.2 mg/dL (0.55-1.02); Chloride 94 mmol/L (98-107); Estimated GFR 57.24 (mL/min/1.73m2); Potassium 3.5 mmol/L (3.5-5.1); Sodium 131 mmol/L (136-145)
== END 2022-02-02 01:45 | disposition home or self-care (01) ==
PROVIDERS: PCP Family Medicine; Visit Provider Family Medicine
DX: I10 Essential (primary) hypertension (principal); R30.0 Dysuria; Z79.01 Long term (current) use of anticoagulants; R73.01 Impaired fasting glucose
CPT/HCPCS: 36415; 80048; 81003; 83036; 85610

== ENCOUNTER → 2022-02-12 01:53 | Outpatient (CLI) | payer OTHER, SELFPAY ==
--- NOTE | 2022-02-12 07:30 | DI.MAMMO_ITS ---
Exam(s) MAMMO SCREENING EXAM: MAMMO SCREENING CLINICAL HISTORY: screening,z12.39 TECHNIQUE: Mammograms were interpreted according to the usual protocol including computer analysis w [employer] CAD system, tomosynthesis and C-view imaging. COMPARISON: 2016 through 2020 FINDINGS: The breasts are composed of scattered fibroglandular densities, Breast Density category B. No suspicious masses or suspicious microcalcifications are seen. No skin thickening or abnormal axillary lymph nodes are seen. There has been no significant change from prior exams. IMPRESSION: BI-RADS Category 1, Negative mammogram Yearly screening mammography is recommended. Breast Density - Category B, scattered fibroglandular densities. A negative radiographic report should not delay biopsy if a dominant or clinically suspicious mass is present. Up to ten percent of cancers are not identified on mammography. A negative report may reinforce clinical impression. Adenosis and dense breasts may obscure an underlying neoplasm. False positive reports average 6 to 10%. Patient will receive a letter notifying them of these results.
== END ==
PROVIDERS: PCP Family Medicine; Visit Provider Family Medicine
DX: Z12.31 Encounter for screening mammogram for malignant neoplasm of breast (principal)
CPT/HCPCS: 77063; 77067

== ENCOUNTER 2022-02-12 12:55 | Outpatient (CLI) | payer OTHER, SELFPAY ==
[2022-02-12 15:53] LABS: Prothrombin Time 36.8 sec (9.3-11.0)
== END 2022-02-12 12:56 | disposition home or self-care (01) ==
LOC: LBO 12:56
PROVIDERS: PCP Family Medicine; Visit Provider Family Medicine
DX: I82.891 Chronic embolism and thrombosis of other specified veins; Z79.01 Long term (current) use of anticoagulants
CPT/HCPCS: 36415; 85610

== ENCOUNTER 2022-02-21 03:24 | Outpatient (CLI) | payer OTHER, SELFPAY ==
[2022-02-21 11:23] LABS: INR 2.5 (0.9-1.1); Prothrombin Time 24.1 sec (9.3-11.0)
== END 2022-02-21 03:25 | disposition home or self-care (01) ==
PROVIDERS: PCP Family Medicine; Visit Provider Family Medicine
DX: Z79.01 Long term (current) use of anticoagulants (principal); I82.891 Chronic embolism and thrombosis of other specified veins
CPT/HCPCS: 36415; 85610

== ENCOUNTER 2022-02-27 04:00 | Outpatient (CLI) | payer OTHER, SELFPAY ==
--- NOTE | 2022-02-27 13:00 | NS.NUTBLAN_ITS ---
Viniat was referred for diabetes self management education. Newly dx with Dm2 in December PMH: chronic anticoagulation, HLD, HTN, DM2, Obesity, Fibromyalgia 5'6 224 lbs BMI: 36.6 Labs: 2020: A1C: 6.7% 2021: A1C: 11.3%, chol: 350, LDL: 276, HDL: 38, Tri Meds: ozempic, 1000 mg metformin BID, glimipiride 2 mg, statin Blood Sugar Log this week: fastin, post meal: 137, fastin, post meal: 181 Food Record: skips breakfast and lunch often, supper: 2 PB and Fluff sandwiches on ww [place]a had all her teeth removed 8 weeks ago and can only tolerate soft foods such as applesauce, ravioli, soft breads, eggs, ice cream. Her blood sugars have been well controlled on above regime despite reliance on high carb, soft foods. Reviewed with [place] optimal diet to control her diabetes and brainstormed meal ideas. Provided written material. Encouraged 3 meals daily and having protein shakes if unable to sit down for meal. Also encouraged daily exercise- walking outside or using exercise bike at home. Suspect A1C much improved, to have another blood draw next week. [place] instructed to follow up with caption writer if A1C >7.5%.
== END 2022-02-27 04:01 | disposition home or self-care (01) ==
LOC: DS 04:00
PROVIDERS: PCP Family Medicine; Visit Provider Dietitian, Registered
DX: E11.9 Type 2 diabetes mellitus without complications (principal)
CPT/HCPCS: 97802

== ENCOUNTER 2022-03-07 02:54 | Outpatient (CLI) | payer OTHER, SELFPAY ==
[2022-03-07 11:31] LABS: Prothrombin Time 38.8 sec (9.3-11.0)
[2022-03-07 11:39] LABS: INR 4.2 (0.9-1.1)
== END 2022-03-07 02:55 | disposition home or self-care (01) ==
LOC: LBO 02:54
PROVIDERS: PCP Family Medicine; Visit Provider Family Medicine
DX: I82.890 Acute embolism and thrombosis of other specified veins (principal); Z79.01 Long term (current) use of anticoagulants
CPT/HCPCS: 36415; 85610

== ENCOUNTER 2022-03-14 02:41 | Outpatient (CLI) | payer OTHER, SELFPAY ==
[2022-03-14 14:42] LABS: Prothrombin Time 28.4 sec (9.3-11.0)
== END 2022-03-14 02:42 | disposition home or self-care (01) ==
PROVIDERS: PCP Family Medicine; Visit Provider Family Medicine
DX: I82.891 Chronic embolism and thrombosis of other specified veins (principal); Z79.01 Long term (current) use of anticoagulants
CPT/HCPCS: 36415; 85610

== ENCOUNTER 2022-03-21 03:42 | Outpatient (CLI) | payer OTHER, SELFPAY ==
[2022-03-21 11:48] LABS: INR 2.8 (0.9-1.1)
== END 2022-03-21 03:43 | disposition home or self-care (01) ==
LOC: LBO 03:42
PROVIDERS: PCP Family Medicine; Visit Provider Family Medicine
DX: I82.891 Chronic embolism and thrombosis of other specified veins (principal); Z79.01 Long term (current) use of anticoagulants
CPT/HCPCS: 36415; 85610

== ENCOUNTER 2022-04-04 03:07 | Outpatient (CLI) | payer OTHER, SELFPAY ==
[2022-04-04 11:12] LABS: INR 2.8 (0.9-1.1); Prothrombin Time 26.5 sec (9.3-11.0)
[2022-04-04 11:49] LABS: Calculated LDL 87 mg/dL (<100); Cholesterol 149 mg/dL (<200); HDL Cholesterol 43 mg/dL (40-60); Triglyceride 99 mg/dL (<150)
== END 2022-04-04 03:08 | disposition home or self-care (01) ==
PROVIDERS: PCP Family Medicine; Visit Provider Family Medicine
DX: E78.00 Pure hypercholesterolemia, unspecified (principal); I82.891 Chronic embolism and thrombosis of other specified veins; Z79.01 Long term (current) use of anticoagulants
CPT/HCPCS: 36415; 80061; 85610

== ENCOUNTER 2022-05-04 01:18 | Outpatient (CLI) | payer OTHER, SELFPAY ==
[2022-05-04 10:26] LABS: INR 2.1 (0.9-1.1); Prothrombin Time 20.1 sec (9.3-11.0)
== END 2022-05-04 01:19 | disposition home or self-care (01) ==
PROVIDERS: PCP Family Medicine; Visit Provider Family Medicine
DX: Z79.01 Long term (current) use of anticoagulants (principal); I82.891 Chronic embolism and thrombosis of other specified veins
CPT/HCPCS: 36415; 85610

== ENCOUNTER 2022-06-05 02:04 | Outpatient (CLI) | payer OTHER, SELFPAY ==
[2022-06-05 10:39] LABS: INR 1.5 (0.9-1.1); Prothrombin Time 15.1 sec (9.3-11.0)
== END 2022-06-05 02:05 | disposition home or self-care (01) ==
PROVIDERS: PCP Family Medicine; Visit Provider Family Medicine
DX: D68.51 Activated protein C resistance (principal); Z79.01 Long term (current) use of anticoagulants; Z86.718 Personal history of other venous thrombosis and embolism
CPT/HCPCS: 36415; 85610

== ENCOUNTER 2022-06-19 02:19 | Outpatient (CLI) | payer OTHER, SELFPAY ==
[2022-06-19 11:08] LABS: INR 2.3 (0.9-1.1); Prothrombin Time 23.6 sec (9.3-11.0)
== END 2022-06-19 02:20 | disposition home or self-care (01) ==
PROVIDERS: PCP Family Medicine; Visit Provider Family Medicine
DX: Z79.01 Long term (current) use of anticoagulants (principal); I82.891 Chronic embolism and thrombosis of other specified veins
CPT/HCPCS: 36415; 85610

== ENCOUNTER 2022-07-03 07:48 | Outpatient (CLI) | payer OTHER, SELFPAY ==
[2022-07-03 09:06] LABS: INR 2.5 (0.9-1.1); Prothrombin Time 25.7 sec (9.3-11.0)
[2022-07-03 09:32] LABS: COMMENT (LAB VIEW ONLY) 77.71 mg/dL; Microalb ug/mg Crea 9.4 ug/mg Cr
[2022-07-03 09:38] LABS: ALT 74 U/L (14-59); AST 35 U/L (15-37); Albumin 3.8 g/dL (3.4-5.0); Alkaline Phosphatase 116 U/L (46-116); Anion Gap 12.7 mmol/L (3-11); BUN 7 mg/dL (7-18); Bilirubin, Total 0.5 mg/dL (0.2-1.0); CO2 28.3 mmol/L (21.0-32.0); CREATININE 0.8 mg/dL (0.55-1.02); Chloride 102 mmol/L (98-107); Estimated GFR 93.12 (mL/min/1.73m2); Glucose 194 mg/dL (74-106); Potassium 3.4 mmol/L (3.5-5.1); Sodium 143 mmol/L (136-145); Total Protein 7.5 g/dL (6.4-8.2)
== END 2022-07-03 07:49 | disposition home or self-care (01) ==
LOC: LBO 07:49
PROVIDERS: PCP Family Medicine; Visit Provider Family Medicine
DX: Z00.00 Encounter for general adult medical examination without abnormal findings (principal); E11.65 Type 2 diabetes mellitus with hyperglycemia; D68.51 Activated protein C resistance; Z79.01 Long term (current) use of anticoagulants
CPT/HCPCS: 36415; 80053; 82043; 82570; 85610

== ENCOUNTER 2022-08-03 01:32 | Outpatient (CLI) | payer OTHER, SELFPAY ==
[2022-08-03 10:07] LABS: Prothrombin Time 19.8 sec (9.3-11.0)
[2022-08-03 10:31] LABS: ALT 97 U/L (14-59); AST 52 U/L (15-37); Alkaline Phosphatase 100 U/L (46-116); Anion Gap 9.5 mmol/L (3-11); BUN 8 mg/dL (7-18); Bilirubin, Total 0.7 mg/dL (0.2-1.0); CO2 28.5 mmol/L (21.0-32.0); CREATININE 0.9 mg/dL (0.55-1.02); Calcium 8.9 mg/dL (8.5-10.1); Chloride 102 mmol/L (98-107); Estimated GFR 80.84 (mL/min/1.73m2); Glucose 196 mg/dL (74-106); Potassium 3.6 mmol/L (3.5-5.1); Sodium 140 mmol/L (136-145); Total Protein 7.8 g/dL (6.4-8.2)
== END 2022-08-03 01:33 | disposition home or self-care (01) ==
PROVIDERS: PCP Family Medicine; Visit Provider Family Medicine
DX: I10 Essential (primary) hypertension (principal); E78.5 Hyperlipidemia, unspecified; E11.9 Type 2 diabetes mellitus without complications; D68.51 Activated protein C resistance; R79.89 Other specified abnormal findings of blood chemistry; Z79.01 Long term (current) use of anticoagulants
CPT/HCPCS: 36415; 80053; 85610

== ENCOUNTER 2022-08-10 08:39 | Outpatient (CLI) | payer OTHER, SELFPAY ==
[2022-08-10 13:00] LABS: Hemoglobin A1C 6.7 % (<5.7)
[2022-08-13 14:03] LABS: HBs Antibody, Qual Negative (See Note); HBs Antibody, Quant <3.1 mIU/mL (See Note); Hepatitis B Core Antibody Negative (Negative); Hepatitis B surface Ag Negative (Negative); Hepatitis C Ab w Rflx HCV PCR Negative (Negative)
== END 2022-08-10 08:40 | disposition home or self-care (01) ==
LOC: LOS 08:39
PROVIDERS: PCP Family Medicine; Referring Provider Family Medicine; Visit Provider Family Medicine
DX: E11.9 Type 2 diabetes mellitus without complications (principal); R74.01 Elevation of levels of liver transaminase levels
CPT/HCPCS: 36415; 86704; 86706; 86803; 87340; 83036

== ENCOUNTER 2022-08-31 01:30 | Outpatient (CLI) | payer OTHER, SELFPAY ==
[2022-08-31 09:35] LABS: ALT 81 U/L (14-59); AST 38 U/L (15-37); Albumin 3.9 g/dL (3.4-5.0); Alkaline Phosphatase 103 U/L (46-116); Anion Gap 6.9 mmol/L (3-11); BUN 14 mg/dL (7-18); Bilirubin, Total 0.5 mg/dL (0.2-1.0); CO2 31.1 mmol/L (21.0-32.0); CREATININE 0.9 mg/dL (0.55-1.02); Calcium 9.1 mg/dL (8.5-10.1); Chloride 101 mmol/L (98-107); Estimated GFR 80.84 (mL/min/1.73m2); Glucose 165 mg/dL (74-106); Potassium 3.7 mmol/L (3.5-5.1); Sodium 139 mmol/L (136-145); Total Protein 7.9 g/dL (6.4-8.2)
[2022-08-31 10:09] LABS: INR 1.8 (0.9-1.1); Prothrombin Time 17.8 sec (9.3-11.0)
== END 2022-08-31 01:31 | disposition home or self-care (01) ==
PROVIDERS: PCP Family Medicine; Visit Provider Family Medicine
DX: R74.01 Elevation of levels of liver transaminase levels (principal); E11.9 Type 2 diabetes mellitus without complications; I10 Essential (primary) hypertension; I82.890 Acute embolism and thrombosis of other specified veins; Z79.01 Long term (current) use of anticoagulants
CPT/HCPCS: 36415; 80053; 85610

== ENCOUNTER 2022-09-07 03:01 | Outpatient (CLI) | payer OTHER, SELFPAY ==
[2022-09-07 09:21] LABS: Abs Immature Grans 0.02 10^3/uL (0.0-0.06); Absolute Basophil Count 0.03 10^3/uL (0.0-0.2); Absolute Eosinophil Count 0.22 10^3/uL (0.0-0.7); Absolute Lymphocyte Count 2.01 10^3/uL (1.2-3.4); Absolute Monocyte Count 0.34 10^3/uL (0.1-0.8); Absolute Neutrophil Count 4.27 10^3/uL (1.2-6.7); Basophils % 0.4; Eosinophils % 3.2; HCT 44.6 % (36.0-46.0); HGB 14.6 g/dL (11.2-15.7); Immature Grans % 0.3; Lymphocytes % 29.2; MCH 27.3 pg (27.0-33.0); MCHC 32.7 % (32.0-36.0); MCV 84 fL (80-95); MPV 9.4 fL (8.0-11.0); Monocytes % 4.9; Platelet Count 362 10^3/uL (130-400); RBC 5.34 10^6/uL (3.93-5.22); RDW 15.3 % (11.7-14.6); RDW-SD 46.5 fL; WBC 6.89 10^3/uL (4.4-10.8)
[2022-09-07 09:28] LABS: INR 1.8 (0.9-1.1); Prothrombin Time 18.1 sec (9.3-11.0)
== END 2022-09-07 03:02 | disposition home or self-care (01) ==
PROVIDERS: PCP Family Medicine; Visit Provider Family Medicine
DX: E11.65 Type 2 diabetes mellitus with hyperglycemia (principal); I10 Essential (primary) hypertension; E78.5 Hyperlipidemia, unspecified; R74.01 Elevation of levels of liver transaminase levels; D68.51 Activated protein C resistance; Z79.01 Long term (current) use of anticoagulants
CPT/HCPCS: 36415; 85025; 85610

== ENCOUNTER 2022-09-19 04:30 | Outpatient (CLI) | payer OTHER, SELFPAY ==
[2022-09-19 12:38] LABS: INR 2.5 (0.9-1.1); Prothrombin Time 25.2 sec (9.3-11.0)
== END 2022-09-19 04:31 | disposition home or self-care (01) ==
LOC: LBO 04:31
PROVIDERS: PCP Family Medicine; Visit Provider Family Medicine
DX: R74.01 Elevation of levels of liver transaminase levels (principal); D68.51 Activated protein C resistance; Z79.01 Long term (current) use of anticoagulants
CPT/HCPCS: 36415; 85610

== ENCOUNTER 2022-09-26 04:34 | Outpatient (CLI) | payer OTHER, SELFPAY ==
[2022-09-26 12:06] LABS: INR 2.5 (0.9-1.1); Prothrombin Time 25.4 sec (9.3-11.0)
== END 2022-09-26 04:35 | disposition home or self-care (01) ==
PROVIDERS: PCP Family Medicine; Visit Provider Family Medicine
DX: R74.01 Elevation of levels of liver transaminase levels (principal); Z79.01 Long term (current) use of anticoagulants; R79.1 Abnormal coagulation profile; D68.51 Activated protein C resistance
CPT/HCPCS: 36415; 85610

== ENCOUNTER 2022-10-03 03:27 | Outpatient (CLI) | payer OTHER, SELFPAY ==
[2022-10-03 10:22] LABS: INR 2.6 (0.9-1.1); Prothrombin Time 26.4 sec (9.3-11.0)
== END 2022-10-03 03:28 | disposition home or self-care (01) ==
LOC: LBO 03:27
PROVIDERS: PCP Family Medicine; Visit Provider Family Medicine
DX: I82.891 Chronic embolism and thrombosis of other specified veins (principal); R79.1 Abnormal coagulation profile; Z79.01 Long term (current) use of anticoagulants
CPT/HCPCS: 36415; 85610

== ENCOUNTER 2022-10-19 13:31 | Outpatient (CLI) | payer OTHER, SELFPAY ==
--- NOTE | 2022-10-19 13:30 | RT.EKG_ITS ---
APPROVED REPORT Exam: Resting ECG Reason for Exam: tachycardia Patient Location: O HR:106 bpm ECG Measurements Heart Rate 106 AXIS VA 171 P 7 QRSd 71 QRS -10 QT 328 T 38 QTc 436 Conclusion Sinus tachycardia...rate> 99 Low voltage, precordial leads...precordial leads <1.0mV Otherwise normal ECG
== END 2022-10-19 13:32 | disposition home or self-care (01) ==
LOC: DI.CM 13:32
PROVIDERS: PCP Family Medicine; Visit Provider Family Medicine
DX: R00.0 Tachycardia, unspecified (principal); I10 Essential (primary) hypertension
CPT/HCPCS: 93010

== ENCOUNTER 2022-10-25 09:23 | Outpatient (RCR) | payer OTHER, SELFPAY ==
--- NOTE | 2022-10-25 09:30 | HOLTER_ITS ---
APPROVED REPORT Conclusion This is a 48-hour Holter monitor Rhythm throughout was sinus with an average heart rate of 87. Minimum was 68, maximum 125 A total of 4 atrial and 4 ventricular ectopic beats were seen There was no atrial fibrillation, no SVT, no high-grade AV block, no pauses greater than 3 seconds Multiple patient symptoms were reported which could not be reliably correlated with any dysrhythmia
== END 2022-11-19 23:59 | disposition home or self-care (01) ==
LOC: CARDOPNVT 09:23
PROVIDERS: PCP Family Medicine; Visit Provider Family Medicine
DX: R00.0 Tachycardia, unspecified (principal)
CPT/HCPCS: 93225; 93226

== ENCOUNTER 2022-11-01 03:00 | Outpatient (CLI) | payer OTHER, SELFPAY ==
[2022-11-01 11:08] LABS: Prothrombin Time 51.8 sec (9.3-11.0)
[2022-11-01 11:14] LABS: INR 5.2 (0.9-1.1)
== END 2022-11-01 03:01 | disposition home or self-care (01) ==
PROVIDERS: PCP Family Medicine; Visit Provider Family Medicine
DX: I82.890 Acute embolism and thrombosis of other specified veins (principal); Z79.01 Long term (current) use of anticoagulants
CPT/HCPCS: 36415; 85610

== ENCOUNTER 2022-11-03 16:19 | Outpatient (CLI) | payer OTHER, SELFPAY ==
[2022-11-03 11:36] LABS: INR 3.2 (0.9-1.1)
== END 2022-11-03 16:20 | disposition home or self-care (01) ==
LOC: LBO 16:20
PROVIDERS: PCP Family Medicine; Visit Provider Family Medicine
DX: I82.890 Acute embolism and thrombosis of other specified veins (principal); Z79.01 Long term (current) use of anticoagulants
CPT/HCPCS: 85610

== ENCOUNTER 2022-11-09 01:51 | Outpatient (CLI) | payer OTHER, SELFPAY ==
[2022-11-09 10:16] LABS: INR 3.9 (0.9-1.1)
== END 2022-11-09 01:52 | disposition home or self-care (01) ==
PROVIDERS: PCP Family Medicine; Visit Provider Family Medicine
DX: I82.891 Chronic embolism and thrombosis of other specified veins (principal); Z79.01 Long term (current) use of anticoagulants; R74.01 Elevation of levels of liver transaminase levels; R79.1 Abnormal coagulation profile
CPT/HCPCS: 36415; 85610

== ENCOUNTER 2022-11-16 01:45 | Outpatient (CLI) | payer OTHER, SELFPAY ==
[2022-11-16 10:07] LABS: Prothrombin Time 41.6 sec (9.3-11.0)
[2022-11-16 10:17] LABS: INR 4.1 (0.9-1.1)
== END 2022-11-16 01:46 | disposition home or self-care (01) ==
PROVIDERS: PCP Family Medicine; Visit Provider Family Medicine
DX: I82.891 Chronic embolism and thrombosis of other specified veins; Z79.01 Long term (current) use of anticoagulants; R74.01 Elevation of levels of liver transaminase levels
CPT/HCPCS: 36415; 85610

== ENCOUNTER 2022-11-23 02:17 | Outpatient (CLI) | payer OTHER, SELFPAY ==
[2022-11-23 11:46] LABS: INR 3.3 (0.9-1.1); Prothrombin Time 32.8 sec (9.3-11.0)
== END 2022-11-23 02:18 | disposition home or self-care (01) ==
PROVIDERS: PCP Family Medicine; Visit Provider Family Medicine
DX: I82.891 Chronic embolism and thrombosis of other specified veins (principal); Z79.01 Long term (current) use of anticoagulants; R74.01 Elevation of levels of liver transaminase levels
CPT/HCPCS: 36415; 85610

== ENCOUNTER 2022-11-30 02:25 | Outpatient (CLI) | payer OTHER, SELFPAY ==
[2022-11-30 10:20] LABS: INR 2.8 (0.9-1.1); Prothrombin Time 28.5 sec (9.3-11.0)
[2022-11-30 10:25] LABS: Hemoglobin A1C 5.7 % (<5.7)
== END 2022-11-30 02:26 | disposition home or self-care (01) ==
PROVIDERS: PCP Family Medicine; Visit Provider Family Medicine
DX: I82.891 Chronic embolism and thrombosis of other specified veins (principal); Z79.01 Long term (current) use of anticoagulants; E11.65 Type 2 diabetes mellitus with hyperglycemia; D68.51 Activated protein C resistance
CPT/HCPCS: 36415; 83036; 85610

== ENCOUNTER 2022-12-07 02:34 | Outpatient (CLI) | payer OTHER, SELFPAY ==
[2022-12-07 10:19] LABS: INR 2.9 (0.9-1.1); Prothrombin Time 29.4 sec (9.3-11.0)
== END 2022-12-07 02:35 | disposition home or self-care (01) ==
PROVIDERS: PCP Family Medicine; Visit Provider Family Medicine
DX: D68.51 Activated protein C resistance (principal); Z79.01 Long term (current) use of anticoagulants
CPT/HCPCS: 36415; 85610

== ENCOUNTER 2022-12-14 01:33 | Outpatient (CLI) | payer OTHER, SELFPAY ==
[2022-12-14 08:15] LABS: INR 3.2 (0.9-1.1); Prothrombin Time 32.1 sec (9.3-11.0)
== END 2022-12-14 01:34 | disposition home or self-care (01) ==
LOC: LBO 01:33
PROVIDERS: PCP Family Medicine; Visit Provider Family Medicine
DX: R74.01 Elevation of levels of liver transaminase levels (principal); Z79.01 Long term (current) use of anticoagulants; D68.51 Activated protein C resistance
CPT/HCPCS: 36415; 85610

== ENCOUNTER 2022-12-21 02:52 | Outpatient (CLI) | payer OTHER, SELFPAY ==
[2022-12-21 12:00] LABS: INR 2.4 (0.9-1.1); Prothrombin Time 24.4 sec (9.3-11.0)
== END 2022-12-21 02:53 | disposition home or self-care (01) ==
PROVIDERS: PCP Family Medicine; Visit Provider Family Medicine
DX: D68.51 Activated protein C resistance (principal); Z79.01 Long term (current) use of anticoagulants
CPT/HCPCS: 36415; 85610

== ENCOUNTER 2022-12-28 01:59 | Outpatient (CLI) | payer OTHER, SELFPAY ==
[2022-12-28 12:44] LABS: INR 2.8 (0.9-1.1); Prothrombin Time 28.2 sec (9.3-11.0)
== END 2022-12-28 02:00 | disposition home or self-care (01) ==
PROVIDERS: PCP Family Medicine; Visit Provider Family Medicine
DX: D68.51 Activated protein C resistance (principal); Z79.01 Long term (current) use of anticoagulants; R74.01 Elevation of levels of liver transaminase levels
CPT/HCPCS: 36415; 85610

== ENCOUNTER 2023-01-11 01:57 | Outpatient (CLI) | payer OTHER, SELFPAY ==
[2023-01-11 10:05] LABS: Prothrombin Time 42.7 sec (9.3-11.0)
[2023-01-11 10:10] LABS: INR 4.2 (0.9-1.1)
== END 2023-01-11 01:58 | disposition home or self-care (01) ==
LOC: LBO 01:57
PROVIDERS: PCP Family Medicine; Visit Provider Family Medicine
DX: D68.51 Activated protein C resistance (principal); R74.01 Elevation of levels of liver transaminase levels; Z79.01 Long term (current) use of anticoagulants
CPT/HCPCS: 36415; 85610

== ENCOUNTER 2023-01-14 02:10 | Outpatient (CLI) | payer OTHER, SELFPAY ==
[2023-01-14 15:40] LABS: INR 1.9 (0.9-1.1); Prothrombin Time 19.7 sec (9.3-11.0)
== END 2023-01-14 02:11 | disposition home or self-care (01) ==
PROVIDERS: PCP Family Medicine; Visit Provider Family Medicine
DX: D68.51 Activated protein C resistance (principal); R74.01 Elevation of levels of liver transaminase levels; Z79.01 Long term (current) use of anticoagulants
CPT/HCPCS: 36415; 85610

== ENCOUNTER → 2023-01-17 02:40 | Outpatient (CLI) | payer OTHER, SELFPAY ==
--- NOTE | 2023-01-17 07:30 | DI.US_ITS ---
APPROVED REPORT EXAM: Comprehensive 2D, Doppler, and color-flow Echocardiogram Patient Location: Out-Patient [employer] Specialist: Bridgette Blackman RDCS (AE) Indications: Symptomatic tachycardia, HTN Other Information Study Quality: Adequate Conclusion Normal left ventricular wall thickness and chamber size. Ejection fraction is 55%. Wall motion is n ormal Normal right ventricular size and systolic function Both atria are normal in size Trileaflet aortic valve with mild regurgitation Mildly dilated ascending aorta measuring 3.57 cm Wall motion Left Ventricle The left ventricle is normal size. The overall left ventricular systolic function appears low normal. There is normal left ventricular wall thickness. There is normal LV segmental wall motion. There is no ventricular septal defect visualized. LVEF is 55%. Right Ventricle The right ventricle is normal size. The right ventricular systolic function is normal. Atria The left atrium size is normal. The right atrium size is normal. The interatrial septum is intact wit h no evidence for an atrial septal defect. Aortic Valve The aortic valve is normal in structure. Aortic valve is trileaflet. There is no aortic valvular sten osis. Mild aortic regurgitation. Mitral Valve The mitral valve is normal in structure. No evidence of mitral valve stenosis. Trace mitral regurgita tion. Tricuspid Valve The tricuspid valve is normal in structure. There is no tricuspid valve stenosis. Trace to mild tricu spid regurgitation. Pulmonic Valve The pulmonary valve is normal in structure. There is no pulmonic valvular stenosis. There is no pulmo lópez valvular regurgitation. Great Vessels The aortic root is normal in size. The ascending aorta is mildly dilated. Aortic arch is normal in ca liber. IVC is normal in size and collapses >50% with inspiration. Pericardium There is no pericardial effusion. 2D Dimensions IVSD d PLAX 0.86 cm F: 0.6-1.0 Ao Root d 3.13 cm F: 2.7 - 3.3 LVPW d PLAX 0.89 cm F: 0.6 - 1.0 Ao Asc Diam d 3.57 cm F: 2.3 - 3.1 LVID d PLAX 4.22 cm F: 3.8 - 5.2 LVDs 3.11 cm F: 2.2 - 3.5 LV EF Teichholz 51.7 % FS 26.17 % LV EDV (Teich) 79.4 mL LV ESV (Teich) 38.4 mL M-Mode TAPSE 1.46 cm (M/F) >1.7 Auto EF LV EDV A4C 55.8 mL LV EDV A2C 69.5 mL LV EDV BP LV ESV A4C 29.1 mL LV ESV A2C 32.5 mL LV ESV BP LVEF(%) A4C 47.9 % LVEF(%) A2C 53.2 % LVEF(%) BP LV SV A4C 26.7 ml LV SV A2C 36.9 ml LV SV BP LV CO A4C 2.4 L/min LV CO A2C 3.3 L/min LV CO BP HR A4C 88.02 BPM HR A2C 89.11 BPM LV EDV Index (BP) LA Volume LA Length A4C 4.0 cm LA Length A2C 4.9 cm LA Area A4C s 9.00 cm2 LA Area A2C s 10.94 cm2 LA Vol A4C A-L 17.05 mL LA Vol A2C A-L 20.52 mL LA Vol Biplane A-L 20.7 mL LA Vol/BSA A4C A-L LA Vol/BSA A2C A-L LA Vol/BSA BP A-L 10.7 mL/m2 LA Vol A4C MOD 15.8 mL LA Vol A2C MOD 19.6 mL LA Vol BP MOD 19.5 mL RA Volume RA Area A4C 9.1 cm2 RA ESV A4C (A-L) 17.9mL RA Vol/BSA A4C A-L RA Length A4C 3.9 cm RA ESV A4C (MOD) 17.0mL LV Diastology MV E' medial 0.095 (>0.07 m/s) MV E Vmax 0.60 (0.4-1.3 m/s) MV E/E' MED 6.36 (<14) MV A Vmax 0.90 (0.4-1.3 m/s) E/A Ratio 0.7 Aortic Valve AoV Vmax 1.55 m/s LVOT Vmax 1.26 m/s AoV Peak Grad 48.3 mmHg LVOT Peak Grad 6.3 mmHg AoV Area (Vmax) 2.43 cm2 LVOT VTI 0.211 m AoV VTI 0.253 m LVOT Mean Grad 2.7 mmHg AoV Mean [place]. 1.06 m/s LVOT SV 63.23 mL AoV Mean Grad 5.2 mmHg LVOT Diam s 1.95 cm AoV Area (VTI) 2.50 cm2 AV Regurg Peak Gr. 86.90 mmHg Velocity Ratio 0.81 AR Decel [place] 2.1m/sec2 AR DT 2224 msec AR PHT 645 msec AR Vmax 4.66 m/s Mitral Valve MV DT 344 (160-240 msec) MV Vmax TIPS 0.96 m/s MV Mean Grad 1.8 (<2mmHg) MV VTI 0.200 m Pulmonary Valve PV Vmax 1.20 (0.5-1.5 m/s) RVOT Vmax 0.96 m/s PV Peak Grad 5.8 mmHg RVOT Peak Gr. 3.7 mmHg PV Mean [place] 0.79 m/s RVOT VTI 0.167 m PV Mean Grad 2.9 mmHg RVOT Mean Gr. 1.9 mmHg Tricuspid Valve RA Pressure 3.00 mmHg TV S' 0.11 m/s
== END ==
PROVIDERS: PCP Family Medicine; Visit Provider Family Medicine
DX: I10 Essential (primary) hypertension (principal); R00.0 Tachycardia, unspecified
CPT/HCPCS: 93306

== ENCOUNTER 2023-01-18 03:12 | Outpatient (CLI) | payer OTHER, SELFPAY ==
[2023-01-18 11:53] LABS: INR 2.5 (0.9-1.1); Prothrombin Time 25.7 sec (9.3-11.0)
== END 2023-01-18 03:13 | disposition home or self-care (01) ==
PROVIDERS: PCP Family Medicine; Visit Provider Family Medicine
DX: D68.51 Activated protein C resistance (principal); R74.01 Elevation of levels of liver transaminase levels; Z79.01 Long term (current) use of anticoagulants
CPT/HCPCS: 36415; 85610

== ENCOUNTER 2023-01-24 04:07 | Outpatient (CLI) | payer OTHER, SELFPAY ==
[2023-01-24 10:12] LABS: Prothrombin Time 30.1 sec (9.3-11.0)
[2023-01-24 10:49] LABS: ALT 56 U/L (14-59); AST 34 U/L (15-37); Albumin 3.8 g/dL (3.4-5.0); Alkaline Phosphatase 73 U/L (46-116); Anion Gap 8.9 mmol/L (3-11); BUN 11 mg/dL (7-18); Bilirubin, Total 1.1 mg/dL (0.2-1.0); CO2 32.1 mmol/L (21.0-32.0); CREATININE 1.2 mg/dL (0.55-1.02); Calcium 8.7 mg/dL (8.5-10.1); Chloride 98 mmol/L (98-107); Estimated GFR 56.89 (mL/min/1.73m2); Glucose 99 mg/dL (74-106); Sodium 139 mmol/L (136-145); Total Protein 7.4 g/dL (6.4-8.2)
== END 2023-01-24 04:08 | disposition home or self-care (01) ==
LOC: LBO 04:08
PROVIDERS: Family Medicine; PCP Nurse Practitioner Family; Visit Provider Nurse Practitioner Family
DX: R74.01 Elevation of levels of liver transaminase levels (principal); Z00.00 Encounter for general adult medical examination without abnormal findings; Z79.01 Long term (current) use of anticoagulants
CPT/HCPCS: 36415; 80053; 85610

== ENCOUNTER 2023-02-01 04:33 | Outpatient (CLI) | payer OTHER, SELFPAY ==
[2023-02-01 12:43] LABS: Anion Gap 7.6 mmol/L (3-11); BUN 8 mg/dL (7-18); CO2 29.4 mmol/L (21.0-32.0); Calcium 8.5 mg/dL (8.5-10.1); Chloride 104 mmol/L (98-107); Glucose 91 mg/dL (74-106); Potassium 3.5 mmol/L (3.5-5.1); Sodium 141 mmol/L (136-145)
== END 2023-02-01 04:34 | disposition home or self-care (01) ==
LOC: LBO 04:33
PROVIDERS: PCP Nurse Practitioner Family; Visit Provider Family Medicine
DX: E87.6 Hypokalemia (principal); I10 Essential (primary) hypertension
CPT/HCPCS: 36415; 80048

== ENCOUNTER → 2023-02-13 01:00 | Outpatient (CLI) | payer OTHER, SELFPAY ==
--- NOTE | 2023-02-13 08:00 | DI.MAMMO_ITS ---
Exam(s) MAMMO SCREENING EXAM: MAMMO SCREENING CLINICAL HISTORY: screening,Z12.39. TECHNIQUE: Bilateral full field digital CC and MLO mammographic images were obtained with 3D tomosyn thesis and utilizing computer aided detection (CAD). COMPARISON: Prior mammograms were reviewed. FINDINGS: There has been no significant change in the appearance and distribution of the fibroglandular tissue. Small asymmetric densities in both breasts are unchanged from prior mammograms. There are no new spiculated masses nor new malignant appearing microcalcification groups. There is no significant architectural distortion nor skin thickening-retraction. IMPRESSION: Stable benign-appearing findings. No radiographic evidence of malignancy. BI-RADS Category 2 - Benign Findings Breast Density - Category B - Scattered areas of fibroglandular density Breast density Category C or D implies that the patient has dense breast tissue. Dense breast tissue can make it harder to find cancer on a mammogram. Dense breast tissue is also associated with an incr eased risk of breast cancer. This information about the result of the mammogram report was provided to the patient to raise their awareness. Use this report when you speak with the patient about their risks for breast cancer, which includes their family history. At that time, you may recommend additional screening tests (Ultrasoun d or MRI) as these tests may add significant information. A negative radiographic report should not delay biopsy if a dominant or clinically suspicious mass is present. Up to ten percent of cancers are not identified on mammography. A negative report may reinforce clinical impression. Adenosis and dense breasts may obscure an underlying neoplasm. False positive reports average 6 to 10%. Patient will receive a letter notifying them of these results.
== END ==
PROVIDERS: PCP Nurse Practitioner Family; Visit Provider Family Medicine
DX: Z12.31 Encounter for screening mammogram for malignant neoplasm of breast (principal); R92.8 Other abnormal and inconclusive findings on diagnostic imaging of breast
CPT/HCPCS: 77063; 77067

== ENCOUNTER 2023-07-16 05:14 | Outpatient (CLI) | payer OTHER, SELFPAY ==
[2023-07-16 10:22] LABS: HCT 42.6 % (36.0-46.0); HGB 13.5 g/dL (11.2-15.7); MCH 27.6 pg (27.0-33.0); MCHC 31.7 % (32.0-36.0); MCV 87 fL (80-95); MPV 9.6 fL (8.0-11.0); Platelet Count 338 10^3/uL (130-400); RBC 4.89 10^6/uL (3.93-5.22); RDW 13.5 % (11.7-14.6); RDW-SD 43.4 fL
[2023-07-16 11:21] LABS: ALT 21 U/L (14-59); AST 13 U/L (15-37); Albumin 3.8 g/dL (3.4-5.0); Alkaline Phosphatase 110 U/L (46-116); Anion Gap 7.7 mmol/L (3-11); BUN 19 mg/dL (7-18); Bilirubin, Total 0.9 mg/dL (0.2-1.0); CO2 30.3 mmol/L (21.0-32.0); CREATININE 1.1 mg/dL (0.55-1.02); Calcium 8.7 mg/dL (8.5-10.1); Calculated LDL 93 mg/dL (<100); Chloride 103 mmol/L (98-107); Cholesterol 162 mg/dL (<200); Estimated GFR 63.15 (mL/min/1.73m2); Glucose 125 mg/dL (74-106); HDL Cholesterol 54 mg/dL (40-60); Potassium 4.3 mmol/L (3.5-5.1); Sodium 141 mmol/L (136-145); Total Protein 7.4 g/dL (6.4-8.2); Triglyceride 79 mg/dL (<150)
== END 2023-07-16 05:15 | disposition home or self-care (01) ==
PROVIDERS: PCP Nurse Practitioner Family; Visit Provider Nurse Practitioner Family
DX: D68.51 Activated protein C resistance (principal); I10 Essential (primary) hypertension; M79.7 Fibromyalgia; E11.65 Type 2 diabetes mellitus with hyperglycemia; F32.9 Major depressive disorder, single episode, unspecified
CPT/HCPCS: 36415; 80053; 80061; 85027

== ENCOUNTER 2024-01-29 00:45 | Outpatient (CLI) | payer OTHER, SELFPAY ==
--- NOTE | 2024-01-29 06:45 | DI.MAMMO_ITS ---
Exam(s) MAMMO SCREENING EXAM: MAMMO SCREENING CLINICAL HISTORY: screening,Z12.39, FAMILY H/O BREAST CA. TECHNIQUE: Bilateral full field digital CC and MLO mammographic images were obtained with 3D tomosyn thesis and utilizing computer aided detection (CAD). COMPARISON: Prior mammograms were reviewed. FINDINGS: In the right breast there is asymmetric density-nodule seen on CC view 9 cm in from the nipple measur ing 7 by 5 mm, more evident than previous. This is at approximately 12 o'clock position. Spot compr ession view and ultrasound recommended. Skin mole laterally in the right breast is unchanged There are no new significant focal findings in left breast. There are no new malignant-appearing microcalcification groups in either breast. There is no significant architectural distortion nor skin thickening-retraction. IMPRESSION: 1. No radiographic evidence of malignancy in left breast. 2. 7 x 5 mm nodule at the 12 o'clock position of the right breast. Spot compression view and ultraso und recommended BI-RADS Category 0 - Incomplete: Need additional imaging evaluation Breast Density - Category B - Scattered areas of fibroglandular density Breast density Category C or D implies that the patient has dense breast tissue. Dense breast tissue can make it harder to find cancer on a mammogram. Dense breast tissue is also associated with an incr eased risk of breast cancer. This information about the result of the mammogram report was provided to the patient to raise their awareness. Use this report when you speak with the patient about their risks for breast cancer, which includes their family history. At that time, you may recommend additional screening tests (Ultrasoun d or MRI) as these tests may add significant information. A negative radiographic report should not delay biopsy if a dominant or clinically suspicious mass is present. Up to ten percent of cancers are not identified on mammography. A negative report may reinforce clinical impression. Adenosis and dense breasts may obscure an underlying neoplasm. False positive reports average 6 to 10%. Patient will receive a letter notifying them of these results.
== END 2024-01-29 01:05 ==
LOC: DI 00:45
PROVIDERS: PCP Nurse Practitioner Family; Visit Provider Nurse Practitioner Family
DX: Z12.31 Encounter for screening mammogram for malignant neoplasm of breast (principal)
CPT/HCPCS: 77063; 77067

== ENCOUNTER 2024-02-06 01:01 | Outpatient (CLI) | payer OTHER, SELFPAY ==
--- NOTE | 2024-02-06 | DI.MAMMO_ITS ---
Exam(s) MG MAMMO SCREEN CALL BACK UNI US BREAST RT LIMITED EXAM: MG MAMMO SCREEN CALL BACK UNI and U/S breast RT limited CLINICAL HISTORY: 7X5 NODULE 12 O'CLOCK RIGHT R92.8 ABNL MAMMO. TECHNIQUE: Craniocaudal and mediolateral oblique Full Field Digital Mammography views of the right b reast with Computer Aided Diagnosis followed by Tomosynthesis and right breast ultrasound. COMPARISON: Comparison is made with prior examinations. FINDINGS: Mammography/Tomosynthesis: Masses/Architectural Distortion: There is again seen a well-circumscribed 8 mm nodule at the 12 o'dany ck position in the posterior right breast. No associated architectural distortion is seen. There is are no associated microcalcifications. Microcalcifictions: No suspicious pleomorphic-type are seen. Skin Thickening/Nipple Retraction: None. Limited right breast US: Echotexture: Normal appearance of the glandular tissue. Shadowing: No suspicious foci. Cyst: There is a 4 mm cyst seen at the 2 o'clock position of the right breast 5 cm from the nipple. This does not appear to correspond in size or location to the mammographic finding. Solid lesions: None seen. Ductal dilation: None. IMPRESSION: 1. No definite evidence of malignancy is noted. 2. A six-month follow-up right mammogram is requested for re-evaluation. 3. The findings were discussed with the patient on the date of the examination. BI-RADS Category 3 - 6 month - Probably Benign Finding: Recommend follow-up imaging in 6 months Breast Density - Category B - Scattered areas of fibroglandular density Breast density Category C or D implies that the patient has dense breast tissue. Dense breast tissue can make it harder to find cancer on a mammogram. Dense breast tissue is also associated with an incr eased risk of breast cancer. This information about the result of the mammogram report was provided to the patient to raise their awareness. Use this report when you speak with the patient about their risks for breast cancer, which includes their family history. At that time, you may recommend additional screening tests (Ultrasoun d or MRI) as these tests may add significant information. A negative radiographic report should not delay biopsy if a dominant or clinically suspicious mass is present. Up to ten percent of cancers are not identified on mammography. A negative report may reinforce clinical impression. Adenosis and dense breasts may obscure an underlying neoplasm. False positive reports average 6 to 10%. Patient will receive a letter notifying them of these results.
== END 2024-02-06 01:21 ==
LOC: DI 01:01
PROVIDERS: PCP Nurse Practitioner Family; Visit Provider Nurse Practitioner Family
DX: Z12.31 Encounter for screening mammogram for malignant neoplasm of breast (principal); N60.01 Solitary cyst of right breast
CPT/HCPCS: 76642; 77063; 77067

== ENCOUNTER 2024-08-06 00:32 | Outpatient (CLI) | payer OTHER, SELFPAY ==
--- NOTE | 2024-08-06 | DI.US_ITS ---
Exam(s) MG MAMMO DIAGNOSTIC UNI US BREAST RT COMPLETE EXAM: MG MAMMO DIAGNOSTIC UNI-RIGHT AND COMPLETE RIGHT BREAST ULTRASOUND CLINICAL HISTORY: 3-6 mo f/u,abnl mammo rt breast,r92.8,z.09,rt nodule. TECHNIQUE: Unilateral right breast cc and MLO and spot mammographic images were obtained with 3D dale osynthesis technique and utilizing computer aided detection (CAD). COMPLETE RIGHT BREAST ULTRASOUND formed occluding all 4 quadrants as well as the axillary region. COMPARISON: Prior mammograms were reviewed, as was prior ultrasound performed 02/06/2024 FINDINGS: DIAGNOSTIC RIGHT BREAST MAMMOGRAM: There 2 benign appearing nodules again noted with both exhibiting small notch is at most probably isaura ign intramammary lymph nodes. There are no new spiculated masses nor malignant-appearing microcalcification groups in the right angy ast. No new architectural distortion or skin thickening-retraction. COMPLETE RIGHT BREAST ULTRASOUND: Again noted is a previously described microcyst at the 2 o'clock position which measures 3 mm. At the 6 o'clock position there is another 3 mm microcyst. At the 8 o'clock position there is a 2 mm microcyst. Most importantly, there are no concerning solid lesions nor worrisome areas of decreased through benitez smission in the breast. Scanning of the right axilla is negative for significant adenopathy. IMPRESSION: Benign findings on mammography and ultrasound of the right breast as described above Appropriate follow-up is to keep this patient on her yearly mammogram schedule, this implying the nex t bilateral mammogram would be in 6 months, with earlier imaging if a self detected breast change is noted. The patient was informed of the findings and follow-up recommendations by myself prior to leaving the department today. BI-RADS Category 2 - Benign Findings Breast Density - Category B - Scattered areas of fibroglandular density Breast density Category C or D implies that the patient has dense breast tissue. Dense breast tissue can make it harder to find cancer on a mammogram. Dense breast tissue is also associated with an incr eased risk of breast cancer. This information about the result of the mammogram report was provided to the patient to raise their awareness. Use this report when you speak with the patient about their risks for breast cancer, which includes their family history. At that time, you may recommend additional screening tests (Ultrasoun d or MRI) as these tests may add significant information. A negative radiographic report should not delay biopsy if a dominant or clinically suspicious mass is present. Up to ten percent of cancers are not identified on mammography. A negative report may reinforce clinical impression. Adenosis and dense breasts may obscure an underlying neoplasm. False positive reports average 6 to 10%. Patient will receive a letter notifying them of these results.
== END 2024-08-06 00:52 ==
LOC: DI 00:32
PROVIDERS: PCP Nurse Practitioner Family; Visit Provider Nurse Practitioner Family
DX: Z09 Encounter for follow-up examination after completed treatment for conditions other than malignant neoplasm (principal); N60.01 Solitary cyst of right breast
CPT/HCPCS: 76642; 77061; 77065; G0279

== ENCOUNTER 2025-01-19 02:53 | Outpatient (CLI) | payer OTHER, SELFPAY ==
[2025-01-19 10:39] LABS: Hemoglobin A1C 6.7 % (<5.7)
[2025-01-19 11:05] LABS: ALT 62 U/L (14-59); AST 26 U/L (15-37); Albumin 3.8 g/dL (3.4-5.0); Alkaline Phosphatase 111 U/L (46-116); Anion Gap 8.5 mmol/L (3-11); BUN 17 mg/dL (7-18); Bilirubin, Total 0.6 mg/dL (0.2-1.0); CO2 31.5 mmol/L (21.0-32.0); Calcium 8.7 mg/dL (8.5-10.1); Calculated LDL 86 mg/dL (<100); Chloride 102 mmol/L (98-107); Cholesterol 158 mg/dL (<200); Estimated GFR 56.19 (mL/min/1.73m2); Glucose 177 mg/dL (74-106); HDL Cholesterol 46 mg/dL (>or=50); Potassium 4.4 mmol/L (3.5-5.1); Sodium 142 mmol/L (136-145); Total Protein 7.4 g/dL (6.4-8.2); Triglyceride 132 mg/dL (<150)
== END 2025-01-19 02:54 | disposition home or self-care (01) ==
LOC: LBO 02:53
PROVIDERS: PCP Nurse Practitioner Family; Visit Provider Nurse Practitioner Family
DX: Z00.00 Encounter for general adult medical examination without abnormal findings (principal); I10 Essential (primary) hypertension; E11.65 Type 2 diabetes mellitus with hyperglycemia; E78.00 Pure hypercholesterolemia, unspecified
CPT/HCPCS: 36415; 80053; 80061; 83036

== ENCOUNTER 2025-01-29 03:06 | Outpatient (CLI) | payer OTHER, SELFPAY ==
--- NOTE | 2025-01-29 08:45 | DI.MAMMO_ITS ---
Exam(s) MAMMO SCREENING EXAM: MAMMO SCREENING CLINICAL HISTORY: screening,z12.39 TECHNIQUE: Bilateral full field digital CC and MLO mammographic images were obtained with 3D tomosynthesis and utilizing computer aided detection (CAD). COMPARISON: Comparison is made with prior examinations. FINDINGS: Masses/Architectural Distortion: No suspicious masses or areas of architectural distortion are present. There are stable bilateral breast nodules. Microcalcifications: No suspicious pleomorphic-type are seen. Skin Thickening/Nipple Retraction: None. IMPRESSION: 1. No significant interval change with no specific features of malignancy noted. 2. Unless there is more urgent need, screening mammography is recommended, as per [place] [employer] guidelines. BI-RADS Category 2 - Benign Findings Breast Density - Category B - There are scattered areas of fibroglandular density. Breast density Category C or D implies that the patient has dense breast tissue. Dense breast tissue can make it harder to find cancer on a mammogram. Dense breast tissue is also associated with an increased risk of breast cancer. This information about the result of the mammogram report was provided to the patient to raise their awareness. Use this report when you speak with the patient about their risks for breast cancer, which includes their family history. At that time, you may recommend additional screening tests (Ultrasound or MRI) as these tests may add significant information. A negative radiographic report should not delay biopsy if a dominant or clinically suspicious mass is present. Up to ten percent of cancers are not identified on mammography. A negative report may reinforce clinical impression. Adenosis and dense breasts may obscure an underlying neoplasm. False positive reports average 6 to 10%. Patient will receive a letter notifying them of these results.
== END 2025-01-29 03:26 ==
PROVIDERS: PCP Nurse Practitioner Family; Visit Provider Nurse Practitioner Family
DX: Z12.31 Encounter for screening mammogram for malignant neoplasm of breast (principal)
CPT/HCPCS: 77063; 77067